=== PATIENT | female | born 1955 | race African-American/Black ===

== ENCOUNTER 2016-08-24 01:39 | Emergency (ER) | payer OTHER ==
[~2016-08-24] VITALS: Ht 167.6 cm; Wt 83.5 kg
[~2016-08-24 01:39] MED LIST: HYDR-2666 PO; INSU100I13 SQ; INSU200I SQ; LISI10TA2 PO; METF10002 PO
[2016-08-24 02:20] LABS: BILIRUBIN,URINE NEGATIVE (NEG); GLUCOSE,URINE >=1000 mg/dL (NEG); NITRITE,URINE NEGATIVE (NEG); PH,URINE 5.5; PROTEIN,URINE NEGATIVE (NEG-TRACE); UROBILINOGEN,URINE 0.2 mg/dL (0.2 mg/dL)
[2016-08-24 02:28] LABS: BACTERIA,URINE FEW /HPF (0-FEW); SQUAMOUS EPITHELIAL CELL,UR MANY /LPF; YEAST,URINE PRESENT /HPF
[2016-08-24] MEDS ORDERED: FLUC150T PO (02:46)
[2016-08-24] MEDS ORDERED: CIPR250T PO (02:46)
--- NOTE | 2016-08-24 02:46 | PHYS DOC ---
Past Medical History Past Medical History: Asthma, Diabetes-Type II, High Cholesterol, Hypertension Additional Past Medical Histor: glaucoma Past Surgical History: Other Additional Past Surgical Histo: cataracts and hip implant Alcohol Use: None Drug Use: None Adult General Chief Complaint Chief Complaint: VAGINAL BLEEDING HPI HPI Patient is a 60 year old female who presents with concern of vaginal irritation and vaginal redness for the past few days, blood with wiping after urination today, burning with urination today, one week of rhinorrhea/dry cough/ chills, and seeking ophthalmology referral for chronic glaucoma. She denies headache, vision changes, eye pain, nausea or vomiting, measured fever, abdominal pain, diarrhea, constipation. Review of Systems Review of Systems Constitutional: Denies fever or chills [] Eyes: Denies change in visual acuity, redness, or eye pain [] HENT: Denies nasal congestion or sore throat [] Respiratory: Denies cough or shortness of breath [] Cardiovascular: No additional information not addressed in HPI [] GI: Denies abdominal pain, nausea, vomiting, bloody stools or diarrhea [] : Has dysuria and hematuria [] Musculoskeletal: Denies back pain or joint pain [] Integument: Denies rash or skin lesions [] Neurologic: Denies headache, focal weakness or sensory changes [] Endocrine: Denies polyuria or polydipsia [] Allergies Allergies Allergies Coded Allergies Type Severity Reaction Last Updated Verified No Known Drug Allergies 03/27/16 No Physical Exam Physical Exam Constitutional: Well developed, well nourished, no acute distress, non-toxic appearance. [] HENT: Normocephalic, atraumatic, bilateral external ears normal, oropharynx moist, no oral exudates, nose normal. [] Eyes: PERRLA, EOMI. [] Neck: Normal range of motion, supple. [] Cardiovascular:Heart rate regular rhythm [] Lungs & Thorax: Bilateral breath sounds clear to auscultation [] Abdomen: Bowel sounds normal, soft, no tenderness. [] Genitourinary: Mild erythema of the vulva with no swelling or discharge, no vaginal discharge noted from external vaginal exam Skin: Warm, dry, no erythema, no rash. [] Back: No tenderness, no CVA tenderness. [] Extremities: ROM intact, no edema. [] Neurologic: Alert and oriented X 3, normal motor function, normal sensory function, no focal deficits noted. [] Psychologic: Affect normal, judgement normal, mood normal. [] Current Patient Data Vital Signs Vital Signs Date Time Temp Pulse Resp B/P Pulse Ox O2 Delivery O2 Flow Rate FiO2 08/24/16 02:57 71 16 135/76 94 Room Air 08/24/16 02:18 97.9 97.9 Lab Values Laboratory Tests Test 08/24/16 02:10 08/24/16 02:13 Glucose (Fingerstick) 317mg/dL (70-99) H Urine Collection Type Unknown Urine Color Yellow Urine Clarity Clear Urine pH 5.5 Urine Specific [place] >=1.030 Urine Protein Negativemg/dL (NEG-TRACE) Urine Glucose (UA) >=1000mg/dL (NEG) Urine Ketones (Stick) Negativemg/dL (NEG) Urine Blood Moderate (NEG) Urine Nitrite Negative (NEG) Urine Bilirubin Negative (NEG) Urine Urobilinogen Dipstick 0.2mg/dL (0.2 mg/dL) Urine Leukocyte Esterase Negative (NEG) Urine RBC 11-20/HPF (0-2) Urine WBC 5-10/HPF (0-4) Urine Squamous Epithelial Cells Many/LPF Urine Bacteria Few/HPF (0-FEW) Urine Mucus Slight/LPF Urine Yeast Present/HPF Course & Med Decision Making Course & Med Decision Making Pertinent Labs and Imaging studies reviewed. (See chart for details) Has hyperglycemia, but did not take home diabetes medications today. Urine with signs of UTI as well as yeast infection. History and symptoms concerning for UTI and yeast infection. Will give antibiotics and antifungal. Will give referral for gynecology and ophthalmology per request. Return precautions given. She understands and agrees with plan. Dragon Disclaimer Dragon Disclaimer This electronic medical record was generated, in whole or in part, using a voice recognition dictation system. Departure Departure Impression: Primary Impression: Diabetes type 2, uncontrolled Additional Impressions: Upper respiratory infection, viral Vulvovaginitis due to Thuy Acute cystitis with hematuria Glaucoma Disposition: 01 HOME, SELF-CARE Condition: STABLE Referrals: PELON AGUILERA MD, GURINDER MD Patient Instructions: Candidal Vulvovaginitis, [id number] Additional Instructions: Take Diflucan for yeast infection. Take second dose of Diflucan in 3 days if her symptoms do not improve. Take Cipro for urinary tract infection. Follow-up with your primary care doctor, gynecology clinic, and ophthalmology clinic. Please call for appointments. Return for any concerns. Scripts Ciprofloxacin Hcl 250 Mg Tablet1 Tab PO BID #6 TAB Prov:Vahe BLANCAS MD 08/24/16 Fluconazole (Diflucan)150 Mg Tablet1 Tab PO ONCE #1 TAB Ref 1 Prov:Vahe BLANCAS MD 08/24/16 Problem Qualifiers Primary Impression: Diabetes type 2, uncontrolled Diabetes mellitus complication status: without complication Diabetes mellitus extermination inspector insulin use: without fpc use Qualified Code: E11.65 - Type 2 diabetes mellitus with hyperglycemia Additional Impressions: Glaucoma Glaucoma type: unspecified type Laterality: bilateral Qualified Code: H40.9 - Unspecified glaucoma Vahe BLANCAS MD Aug 24, 2016 02:46
[2016-08-24 02:57] VITALS: BP 135/76
== END 2016-08-24 02:58 | disposition home or self-care (01) ==
LOC: ER 01:39
DX: N30.01 Acute cystitis with hematuria (principal); B37.3 Candidiasis of vulva and vagina; J06.9 Acute upper respiratory infection, unspecified; E11.39 Type 2 diabetes mellitus with other diabetic ophthalmic complication; H40.9 Unspecified glaucoma; J45.909 Unspecified asthma, uncomplicated; E78.00 Pure hypercholesterolemia, unspecified; I10 Essential (primary) hypertension
CPT/HCPCS: 81001; 82947; 87086; 99284

== ENCOUNTER 2017-12-27 11:05 | Emergency (ER) | payer OTHER ==
[2017-12-27 11:55] LABS: ADD MAN DIFF? NO
[2017-12-27 11:58] LABS: BASO # 0.1 x10^3/uL (0.0-0.2); BASO % 1 % (0-3); EOS # 0.1 x10^3/uL (0.0-0.7); EOS % 1 % (0-3); HEMATOCRIT 43.2 % (36.0-47.0); HEMOGLOBIN 15.2 g/dL (12.0-15.5); LYMPH # 3.3 x10^3/uL (1.0-4.8); LYMPH % 46 % (24-48); MEAN CORPUSCULAR HEMOGLOBIN 34 pg (25-35); MEAN CORPUSCULAR HGB CONC 35 g/dL (31-37); MEAN CORPUSCULAR VOLUME 97 fL (79-100); MONO # 0.4 x10^3/uL (0.0-1.1); MONO % 6 % (0-9); NEUT # 3.3 x10^3uL (1.8-7.7); NEUT % 46 % (31-73); PLATELET COUNT 295 x10^3/uL (140-400); RED BLOOD COUNT 4.44 x10^6/uL (3.50-5.40); RED CELL DISTRIBUTION WIDTH 13.4 % (11.5-14.5); WHITE BLOOD COUNT 7.2 x10^3/uL (4.0-11.0)
[2017-12-27 11:59] LABS: BILIRUBIN,URINE NEGATIVE (NEG); CLARITY,URINE CLEAR; COLOR,URINE YELLOW; GLUCOSE,URINE >=1000 mg/dL (NEG); NITRITE,URINE NEGATIVE (NEG); PH,URINE 5.5; PROTEIN,URINE NEGATIVE (NEG-TRACE); UROBILINOGEN,URINE 0.2 mg/dL (0.2 mg/dL)
[2017-12-27 12:07] LABS: BARBITURATES NEG (NEG); BENZODIAZEPINES NEG (NEG); CANNABINOIDS NEG (NEG); COCAINE NEG (NEG); METHADONE NEG (NEG); OPIATES NEG (NEG); PHENCYCLIDINE NEG (NEG)
[2017-12-27 12:08] LABS: AMPHETAMINE/METHAMPHETAMINE NEG (NEG); ETHANOL, URINE NEG (NEG)
[2017-12-27 12:11] LABS: ANION GAP 5 (6-14); BLOOD UREA NITROGEN 8 mg/dL (7-20); BUN/CREATININE RATIO 8 (6-20); CALCIUM 9.3 mg/dL (8.5-10.1); CARBON DIOXIDE 29 mmol/L (21-32); CHLORIDE 102 mmol/L (98-107); GLUCOSE 326 mg/dL (70-99); POTASSIUM 5.2 mmol/L (3.5-5.1); SODIUM 136 mmol/L (136-145)
[2017-12-27 12:15] LABS: BACTERIA,URINE 0 /HPF (0-FEW); RBC,URINE 0 /HPF (0-2); SQUAMOUS EPITHELIAL CELL,UR MOD /LPF; WBC,URINE 0 /HPF (0-4)
[2017-12-27 12:17] LABS: ALBUMIN 3.5 g/dL (3.4-5.0); ALBUMIN/GLOBULIN RATIO 0.9 (1.0-1.7); ALK PHOS 103 U/L (46-116); ALT (SGPT) 21 U/L (14-59); AST (SGOT) 16 U/L (15-37); TOTAL BILIRUBIN 0.4 mg/dL (0.2-1.0); TOTAL PROTEIN 7.3 g/dL (6.4-8.2)
[2017-12-27 12:22] LABS: TROPONINI < 0.017 ng/mL (0.000-0.055)
[2017-12-27 12:24] LABS: CKMB INDEX 0.4 % (0-4); CKMB MASS 0.6 ng/mL (0.0-3.6); CREATINE KINASE 138 U/L (26-192)
[2017-12-27 12:24] LABS: NT-PRO BNP 39 pg/mL (0-124); THYROID STIM HORMONE (TSH) 0.727 uIU/mL (0.358-3.74)
== END 2017-12-27 13:45 | disposition home or self-care (01) ==
LOC: ER 13:45
DX: M54.12 Radiculopathy, cervical region (principal); M79.605 Pain in left leg; E11.65 Type 2 diabetes mellitus with hyperglycemia; E78.00 Pure hypercholesterolemia, unspecified; I10 Essential (primary) hypertension; J45.909 Unspecified asthma, uncomplicated; Z86.73 Personal history of transient ischemic attack (TIA), and cerebral infarction without residual deficits
CPT/HCPCS: 36415; 70450; 71045; 72040; 73030; 80053; 80307; 81001; 82553; 83735; 83880; 84443; 84484; 85025; 93005; 99285-25

== ENCOUNTER 2018-05-24 11:47 | Emergency (ER) | payer OTHER ==
[~2018-05-24] VITALS: Ht 165.1 cm; Wt 81.2 kg
[~2018-05-24 11:47] MED LIST changes: +CIPR250T PO; +CYCL10TA2 PO; +FLUC150T PO; -HYDR-2666 PO; +HYDR-2758 PO; -METF10002 PO; +METF10007 PO
[2018-05-24] MEDS ORDERED: IV NORMAL SALINE 1000ML BAG 1,000 ML IV SCH (12:11)
[2018-05-24] MEDS ORDERED: ASPIRIN CHEWABLE 81 MG TABLET. PO ONE (12:15)
--- NOTE | 2018-05-24 12:30 | PHYS DOC ---
Past Medical History Past Medical History: Asthma, Diabetes-Type II, High Cholesterol, Hypertension , TIA Additional Past Medical Histor: glaucoma Past Surgical History: Other Additional Past Surgical Histo: cataracts and hip implant Alcohol Use: None Drug Use: None Adult General Chief Complaint Chief Complaint: CHEST PAIN [facility] HPI Patient is a 62-year-old female who presents with complaint of midsternal chest pain that radiates into her left chest and down both arms that is been present for the past 3 days. She states the symptoms are intermittent in nature and it times it feels like the pain is shooting across her left chest into her left shoulder. She states that initially the pain was shooting just down her left arm to her fingers but since yesterday it started shooting down her right arm as well. Patient does indicate that she has a history of a blood clot. She states that she is concerned that this could be a blood clot. She states that she went and saw her primary care doctor this week and he stated he wanted to schedule her for a stress test. She is concerned because she doesn't feel like he is taking seriously enough. Patient states that there seemed to be no exacerbating or alleviating factors. She states that at its worst the pain is been a 7 out of 10 but is currently a 3 out of 10. Review of Systems Review of Systems Constitutional: Denies fever or chills [] Eyes: Denies change in visual acuity, redness, or eye pain [] HENT: Denies nasal congestion or sore throat [] Respiratory: Denies cough or shortness of breath [] Cardiovascular: No additional information not addressed in HPI [] GI: Denies abdominal pain, nausea, vomiting, bloody stools or diarrhea [] : Denies dysuria or hematuria [] Musculoskeletal: Denies back pain or joint pain [] Integument: Denies rash or skin lesions [] Neurologic: Denies headache, focal weakness or sensory changes [] Endocrine: Denies polyuria or polydipsia [] All other systems were reviewed and found to be within normal limits, except as documented in this note. Current Medications Current Medications Current Medications Medications (Trade) Dose Ordered Sig/Angel Luis Start Time Stop Time Status Last Admin Dose Admin Aspirin (Children'S Aspirin) 324 mg 1X ONCE 05/24/18 12:15 05/24/18 12:16 DC 05/24/18 12:25 324 MG Info (CONTRAST GIVEN -- Rx MONITORING) 1 each PRN DAILY PRN 05/24/18 13:15 05/26/18 13:14 Iohexol (Omnipaque 300 Mg/ml) 75 ml 1X ONCE 05/24/18 13:15 05/24/18 13:16 DC 05/24/18 13:17 75 ML Sodium Chloride 1,000 ml @ 100 mls/hr Q10H 05/24/18 12:11 05/24/18 22:10 05/24/18 12:25 100 MLS/HR Allergies Allergies Allergies Coded Allergies Type Severity Reaction Last Updated Verified No Known Drug Allergies 03/27/16 No Physical Exam Physical Exam Constitutional: Well developed, well nourished, no acute distress, non-toxic appearance. [] HENT: Normocephalic, atraumatic, bilateral external ears normal, oropharynx moist, no oral exudates, nose normal. [] Eyes: PERRLA, EOMI, conjunctiva normal, no discharge. [] Neck: Normal range of motion, no tenderness, supple, no stridor. [] Cardiovascular:Heart rate regular rhythm, no murmur [] Lungs & Thorax: Bilateral breath sounds clear to auscultation [] Abdomen: Bowel sounds normal, soft, no tenderness, no masses, no pulsatile masses. [] Skin: Warm, dry, no erythema, no rash. [] Back: No tenderness, no CVA tenderness. [] Extremities: No tenderness, no cyanosis, no clubbing, ROM intact, no edema. [] Neurologic: Alert and oriented X 3, normal motor function, normal sensory function, no focal deficits noted. [] Psychologic: Affect normal, judgement normal, mood normal. [] Current Patient Data Vital Signs Vital Signs Date Time Temp Pulse Resp B/P (MAP) Pulse Ox O2 Delivery O2 Flow Rate FiO2 05/24/18 11:55 98.5 76 16 156/80 (105) 98 Room Air 98.5 Lab Values Laboratory Tests Test 05/24/18 12:05 White Blood Count 7.2 x10^3/uL (4.0-11.0) Red Blood Count 4.02 x10^6/uL (3.50-5.40) Hemoglobin 13.4 g/dL (12.0-15.5) Hematocrit 38.9 % (36.0-47.0) Mean Corpuscular Volume 97 fL (79-100) Mean Corpuscular Hemoglobin 33 pg (25-35) Mean Corpuscular Hemoglobin Concent 35 g/dL (31-37) Red Cell Distribution Width 13.8 % (11.5-14.5) Platelet Count 293 x10^3/uL (140-400) Neutrophils (%) (Auto) 43 % (31-73) Lymphocytes (%) (Auto) 50 % (24-48) H Monocytes (%) (Auto) 5 % (0-9) Eosinophils (%) (Auto) 1 % (0-3) Basophils (%) (Auto) 1 % (0-3) Neutrophils # (Auto) 3.1 x10^3uL (1.8-7.7) Lymphocytes # (Auto) 3.6 x10^3/uL (1.0-4.8) Monocytes # (Auto) 0.4 x10^3/uL (0.0-1.1) Eosinophils # (Auto) 0.1 x10^3/uL (0.0-0.7) Basophils # (Auto) 0.0 x10^3/uL (0.0-0.2) Prothrombin Time 13.1 SEC (11.7-14.0) Prothrombin Time INR 1.0 (0.8-1.1) D-Dimer (Iris) 0.53 ug/mlFEU (0.00-0.50) H Sodium Level 142 mmol/L (136-145) Potassium Level 4.1 mmol/L (3.5-5.1) Chloride Level 104 mmol/L (98-107) Carbon Dioxide Level 28 mmol/L (21-32) Anion Gap 10 (6-14) Blood Urea Nitrogen 8 mg/dL (7-20) Creatinine 0.9 mg/dL (0.6-1.0) Estimated GFR (Cockcroft-Gault) 76.8 BUN/Creatinine Ratio 9 (6-20) Glucose Level 299 mg/dL (70-99) H Calcium Level 8.9 mg/dL (8.5-10.1) Magnesium Level 1.7 mg/dL (1.8-2.4) L Total Bilirubin 0.2 mg/dL (0.2-1.0) Aspartate Amino Transferase (AST) 16 U/L (15-37) Alanine Aminotransferase (ALT) 21 U/L (14-59) Alkaline Phosphatase 87 U/L (46-116) Troponin I Quantitative < 0.017 ng/mL (0.000-0.055) LE-Yxa-Z-Type Natriuretic Peptide 89 pg/mL (0-124) Total Protein 6.9 g/dL (6.4-8.2) Albumin 3.3 g/dL (3.4-5.0) L Albumin/Globulin Ratio 0.9 (1.0-1.7) L Lipase 1173 U/L (73-393) H Thyroid Stimulating Hormone (TSH) 0.775 uIU/mL (0.358-3.74) Laboratory Tests 05/24/18 12:05 Laboratory Tests 05/24/18 12:05 EKG EKG [] Interpretation Time: EKG demonstrates normal sinus rhythm with rate of 69. Radiology/Procedures Radiology/Procedures [] Impressions: CT abdomen and pelvis demonstrates no acute abnormalities include no pancreatitis. Venous duplex ultrasound of the left upper extremity demonstrates no DVT. Chest x-ray demonstrates no acute process. Course & Med Decision Making Course & Med Decision Making Pertinent Labs and Imaging studies reviewed. (See chart for details) [] Dragon Disclaimer Dragon Disclaimer This electronic medical record was generated, in whole or in part, using a voice recognition dictation system. Departure Departure Impression: Primary Impression: Acute pancreatitis Disposition: 01 HOME, SELF-CARE Condition: STABLE Referrals: NO PCP (PCP) Patient Instructions: Acute Pancreatitis Additional Instructions: Take prescribed medications as directed. I would recommend clear liquid diet initially and advance to bland diet for at least the next 48 hours. Follow-up with your primary care provider in the next few days for repeat blood work to include lipase. Scripts Ondansetron Hcl (ZOFRAN) 4 Mg Tablet 4 MG PO PRN TID PRN for NAUSEA/VOMITING, #15 nausea/vomiting Prov: JUAN CRUMP Jr. DO 05/24/18 Hydrocodone/Apap 5-325 (NORCO 5-325 TABLET) 1 Each Tablet 1 EACH PO PRN Q6HRS PRN for PAIN, #15 as needed for pain Prov: JUAN CRUMP Jr. DO 05/24/18 Problem Qualifiers Primary Impression: Acute pancreatitis Pancreatitis type: unspecified pancreatitis type Acute pancreatitis complication: no infection or necrosis Qualified Codes: K85.90 - Acute pancreatitis without necrosis or infection, unspecified JUAN CRUMP Jr. DO May 24, 2018 12:30
[2018-05-24 12:32] LABS: PROTHROMBIN TIME PATIENT 13.1 SEC (11.7-14.0)
--- NOTE | 2018-05-24 12:32 | RAD ---
EXAM: CHEST 1 VIEW History: Chest pain COMPARISON: 12/27/2017 TECHNIQUE: Single portable radiograph of the chest FINDINGS: The cardiac silhouette is unremarkable. The lungs are clear bilaterally. The costophrenic sulci are clear and well demarcated. IMPRESSION: No radiographic evidence of an acute cardiopulmonary process. Electronically signed by: Gautam Wilkins MD (05/24/2018 12:28 PM) [place] [id number]
[2018-05-24 12:35] LABS: BASO % 1 % (0-3); EOS # 0.1 x10^3/uL (0.0-0.7); EOS % 1 % (0-3); HEMATOCRIT 38.9 % (36.0-47.0); HEMOGLOBIN 13.4 g/dL (12.0-15.5); LYMPH # 3.6 x10^3/uL (1.0-4.8); LYMPH % 50 % (24-48); MEAN CORPUSCULAR HEMOGLOBIN 33 pg (25-35); MEAN CORPUSCULAR HGB CONC 35 g/dL (31-37); MEAN CORPUSCULAR VOLUME 97 fL (79-100); MONO # 0.4 x10^3/uL (0.0-1.1); MONO % 5 % (0-9); NEUT # 3.1 x10^3uL (1.8-7.7); NEUT % 43 % (31-73); PLATELET COUNT 293 x10^3/uL (140-400); RED BLOOD COUNT 4.02 x10^6/uL (3.50-5.40); RED CELL DISTRIBUTION WIDTH 13.8 % (11.5-14.5); WHITE BLOOD COUNT 7.2 x10^3/uL (4.0-11.0)
[2018-05-24 12:38] LABS: D-DIMER 0.53 ug/mlFEU (0.00-0.50)
[2018-05-24 12:41] LABS: CALCIUM 8.9 mg/dL (8.5-10.1); CREATININE 0.9 mg/dL (0.6-1.0); GFR 76.8; POTASSIUM 4.1 mmol/L (3.5-5.1)
--- NOTE | 2018-05-24 12:41 | EKG ---
[facility] [address] [place] [address] Test Date: 2018-05-24 Test Time: 11:55:45 Pat Name: LEISA PEMBERTON Department: Room: Gender: F Csr Technician: : 1955 Requested By: JUAN CRUMP Order Number: [id number] Reading MD: Forest Rosas MD Measurements Intervals [place] Rate: 69 P: 51 GA: 172 QRS: -44 QRSD: 76 T: 34 QT: 374 QTc: 402 Interpretive Statements SINUS RHYTHM CANNOT RULE OUT PRIOR SEPTAL INFARCT Electronically Signed On 05-28-2018 11:13:07 SENIOR INFORMATION SECURITY CONSULTANT by Forest Rosas MD
[2018-05-24 12:46] LABS: ALBUMIN 3.3 g/dL (3.4-5.0); ALBUMIN/GLOBULIN RATIO 0.9 (1.0-1.7); MAGNESIUM 1.7 mg/dL (1.8-2.4); TOTAL BILIRUBIN 0.2 mg/dL (0.2-1.0); TOTAL PROTEIN 6.9 g/dL (6.4-8.2)
[2018-05-24] MEDS ORDERED: CONTRAST GIVEN. MC PRN (13:15)
[2018-05-24] MEDS ORDERED: IOHEXOL 300 MG/ML 100ML VIAL. IV ONE (13:15)
--- NOTE | 2018-05-24 13:35 | RAD ---
CT ABD PELV W/ IV CONTRST ONLY dated 05/24/2018 1:12 PM Indication: Abdominal pain.EKEVATED LIPASE PANCREATITIS NO PREV. Comparison: No comparison is available. Technique: Contiguous axial imaging of the abdomen and pelvis performed after the intravenous administration of 75 cc Omnipaque 300. One or more of the following individualized dose reduction techniques were utilized for this examination: 1. Automated exposure control 2. Adjustment of the mA and/or kV according to patient size 3. Use of iterative reconstruction technique Findings: Limited images of lung bases show patchy and linear opacity in the lower lobes. There is mild emphysema. Coronary artery calcifications. No pleural or pericardial effusion. Liver, spleen, pancreas unremarkable. No significant inflammatory changes surrounding the pancreas. Adrenal glands, gallbladder unremarkable. 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 Kidneys are otherwise symmetric and enhancement. No hydronephrosis or mass. There is a well-defined low-density foci at the upper pole right kidney, likely small cysts. Unopacified GI tract normal in caliber and contour. No focal bowel wall thickening. Scattered diverticula throughout the colon. No paracolonic inflammatory changes. No ascites or lymphadenopathy. Appendix normal in caliber. Abdominal aorta normal in caliber. Small umbilical hernia containing only fat. Images of pelvis show nondistended urinary bladder. Uterus and adnexa are unremarkable. No free pelvic fluid or pelvic lymphadenopathy. Bone windows show no acute findings. Evidence of prior total right hip arthroplasty. Mild multilevel spondylosis. There is atrophy and volume loss of the right psoas muscle, nonspecific. IMPRESSION: 1. No acute abnormality of abdomen or pelvis. No CT evidence of acute pancreatitis. 2. Diverticulosis with no evidence of acute diverticulitis. 3. Normal appendix. Electronically signed by: Nghia Nguyen MD (05/24/2018 1:32 PM) [id number]
--- NOTE | 2018-05-24 14:09 | RAD ---
Examination: Ultrasound left upper extremity venous Doppler HISTORY: History of DVT COMPARISON: None available TECHNIQUE: Grayscale, color Doppler 2-D, spectral waveform analysis of the left upper extremity venous system were performed. FINDINGS: The visualized internal jugular vein, subclavian vein, axillary cephalic, basilic, brachial, radial, ulnar veins are patent. In the region of the left anterior shoulder, at the site of lump there is a 3.8 cm isoechoic mass probably a lipoma. IMPRESSION: 1. No evidence of deep venous thrombosis left upper extremity. 2. 3.8 cm probable lipoma identified in the left anterior shoulder region. Electronically signed by: Gautam Wilkins MD (05/24/2018 2:05 PM) [place] [id number]
[2018-05-24 14:55] VITALS: BP 170/74
[2018-05-24] MEDS ORDERED: HYDR-971 PO (15:01)
[2018-05-24] MEDS ORDERED: ONDA4TAB7 PO (15:01)
== END 2018-05-24 15:14 | disposition home or self-care (01) ==
LOC: ER 11:47
DX: K85.90 Acute pancreatitis without necrosis or infection, unspecified (principal); R07.89 Other chest pain; J45.909 Unspecified asthma, uncomplicated; E78.00 Pure hypercholesterolemia, unspecified; I10 Essential (primary) hypertension; E11.39 Type 2 diabetes mellitus with other diabetic ophthalmic complication; E11.36 Type 2 diabetes mellitus with diabetic cataract; H42 Glaucoma in diseases classified elsewhere; Z86.73 Personal history of transient ischemic attack (TIA), and cerebral infarction without residual deficits
CPT/HCPCS: 36415; 71045; 74177; 80053; 83690; 83735; 83880; 84443; 84484; 85025; 85379; 85610; 93005; 93971; 99285; J7030; Q9967

== ENCOUNTER → 2019-03-06 | Outpatient (CLI) | payer MEDICAID ==
[~2019-03-06] MED LIST changes: -HYDR-2758 PO; +HYDR-2761 PO; +HYDR-3164 PO; +ONDA4TAB7 PO
--- NOTE | 2019-03-06 16:10 | KCIC ---
Bilateral digital screening mammograms with 3-D tomosynthesis: Reason for examination: Routine screening. No previous examinations for comparison. New baseline. Bilateral mammograms in CC and oblique projections were obtained with 2-D imaging and 3-D tomosynthesis imaging on a Siemens Inspiration unit and reviewed on the workstation. Interpretation was made with the benefit of CAD. The skin and nipples show no abnormalities. No abnormal axillary lymph nodes are seen. The breast parenchyma shows scattered fatty and fibroglandular density. (Breast density: Category B.) There appear to be nodular densities in the subareolar 3:00 and anterior 6:00 positions of the left breast and in the subareolar 10:00 position of the right breast. Further evaluation with ultrasound is recommended. There are no other dominant masses, suspicious calcifications or architectural distortion. Impression: Small nodular densities seen bilaterally in the anterior breasts. Recommend further evaluation with ultrasound. BI-RADS Category 0: Incomplete. Needs additional imaging evaluation. "Our facility is accredited by the [place] [employer] Mammography Program." This patient's information has been entered into a reminder system for the patient to be notified with the results of her examination and a target date for the next mammogram. Electronically signed by: Paz Carmichael MD (03/06/2019 4:07 PM) [id number]
== END | disposition home or self-care (01) ==
LOC: KCIC MAMMO 09:21
PROVIDERS: ATTEND Family Medicine
DX: Z12.31 Encounter for screening mammogram for malignant neoplasm of breast (principal)
CPT/HCPCS: 77063; 77067

== ENCOUNTER 2019-03-28 10:46 | Inpatient (IN) | payer MEDICAID ==
[~2019-03-28] VITALS: Ht 165.1 cm; Wt 78.5 kg
[2019-03-28] MEDS ORDERED: ASPIRIN CHEWABLE 81 MG TABLET. PO ONE (11:30)
--- NOTE | 2019-03-28 11:35 | PHYS DOC ---
Past Medical History Past Medical History: Asthma, Diabetes-Type II, High Cholesterol, Hypertension, TIA Additional Past Medical Histor: glaucoma Past Surgical History: Other Additional Past Surgical Histo: cataracts and hip implant Smoking: Cigarettes Alcohol Use: None Drug Use: None Adult General Chief Complaint Chief Complaint: MULTIPLE COMPLAINTS [facility] HPI Patient is a 63-year-old female, with numerous cardiac risk factors,, who presents to the emergency department for evaluation of multiple complaints. She states that on Monday through Monday, she had dark, black diarrhea, and for the past 2-3 days, has had some intermittent left-sided chest discomfort, described as a sharp pain in her heart area, worse with exertion. She has not had any nausea or vomiting, or any grossly bloody stools. She states that today her stool return to normal color and consistency. She has not had any significant abdominal pain at this time, but does have a history of pancreatitis in the past. There are no alleviating or exacerbating factors to her symptoms otherwise. Review of Systems Review of Systems Constitutional: Denies fever or chills [] Eyes: Denies change in visual acuity, redness, or eye pain [] HENT: Denies nasal congestion or sore throat [] Respiratory: Denies cough or shortness of breath [] Cardiovascular: No additional information not addressed in HPI [] GI: Denies abdominal pain, nausea, vomiting, grossly bloody stools [] : Denies dysuria or hematuria [] Musculoskeletal: Denies back pain or joint pain [] Integument: Denies rash or skin lesions [] Neurologic: Denies headache, focal weakness or sensory changes [] Endocrine: Denies polyuria or polydipsia [] All other systems were reviewed and found to be within normal limits, except as documented in this note. Current Medications Current Medications Current Medications Medications (Trade) Dose Ordered Sig/Angel Luis Start Time Stop Time Status Last Admin Dose Admin Aspirin (Children'S Aspirin) 162 mg 1X ONCE 03/28/19 11:30 03/28/19 11:32 DC 03/28/19 11:52 162 MG Multi-Ingredient Mouthwash/Gargle (Gi Cocktail) 20 ml 1X ONCE 03/28/19 12:00 03/28/19 12:01 DC 03/28/19 11:52 20 ML Allergies Allergies Allergies Coded Allergies Type Severity Reaction Last Updated Verified No Known Drug Allergies 03/27/16 No Physical Exam Physical Exam PHYSICAL EXAM: CONSTITUTIONAL: Well developed, well nourished HEAD: normocephalic, atraumatic EENT: PERRL, EOMI. Conjunctivae normal color, sclerae non-icteric; moist mucous membranes. NECK: Supple, non-tender; no meningismus. LUNGS: Lungs CTA, breathing even and unlabored. Normal air movement. HEART: Regular rate and rhythm, no murmur CHEST: No deformity; non-tender ABDOMEN: The abdomen is soft, there is mild diffuse epigastric and left upper quadrant abdominal tenderness to palpation, without rebound or guarding, the remainder the abdomen is soft and non-tender, no masses or bruits. EXTREM: Normal ROM; no deformity, no calf tenderness. Normal pulses palpable in all extremities. There is no pedal edema. SKIN: No rash; no diaphoresis NEURO: Alert; normal speech and cognition; CN's grossly intact; strength grossly intact without focal deficit. BACK: No CVA TTP. Current Patient Data Vital Signs Vital Signs Date Time Temp Pulse Resp B/P (MAP) Pulse Ox O2 Delivery O2 Flow Rate FiO2 03/28/19 12:26 69 16 112/64 (80) 99 Room Air 03/28/19 10:56 98.4 98.4 Lab Values Laboratory Tests Test 03/28/19 11:21 03/28/19 11:51 Stool Occult Blood Negative (NEG) White Blood Count 6.8 x10^3/uL (4.0-11.0) Red Blood Count 4.23 x10^6/uL (3.50-5.40) Hemoglobin 14.0 g/dL (12.0-15.5) Hematocrit 41.2 % (36.0-47.0) Mean Corpuscular Volume 98 fL (79-100) Mean Corpuscular Hemoglobin 33 pg (25-35) Mean Corpuscular Hemoglobin Concent 34 g/dL (31-37) Red Cell Distribution Width 13.5 % (11.5-14.5) Platelet Count 290 x10^3/uL (140-400) Neutrophils (%) (Auto) 45 % (31-73) Lymphocytes (%) (Auto) 47 % (24-48) Monocytes (%) (Auto) 6 % (0-9) Eosinophils (%) (Auto) 1 % (0-3) Basophils (%) (Auto) 1 % (0-3) Neutrophils # (Auto) 3.1 x10^3/uL (1.8-7.7) Lymphocytes # (Auto) 3.2 x10^3/uL (1.0-4.8) Monocytes # (Auto) 0.4 x10^3/uL (0.0-1.1) Eosinophils # (Auto) 0.1 x10^3/uL (0.0-0.7) Basophils # (Auto) 0.0 x10^3/uL (0.0-0.2) Prothrombin Time 12.5 SEC (11.7-14.0) Prothrombin Time INR 1.0 (0.8-1.1) Sodium Level 141 mmol/L (136-145) Potassium Level 5.2 mmol/L (3.5-5.1) H Chloride Level 106 mmol/L (98-107) Carbon Dioxide Level 26 mmol/L (21-32) Anion Gap 9 (6-14) Blood Urea Nitrogen 12 mg/dL (7-20) Creatinine 0.9 mg/dL (0.6-1.0) Estimated GFR (Cockcroft-Gault) 76.5 BUN/Creatinine Ratio 13 (6-20) Glucose Level 135 mg/dL (70-99) H Calcium Level 9.9 mg/dL (8.5-10.1) Total Bilirubin 0.4 mg/dL (0.2-1.0) Aspartate Amino Transferase (AST) 23 U/L (15-37) Alanine Aminotransferase (ALT) 16 U/L (14-59) Alkaline Phosphatase 79 U/L (46-116) Troponin I Quantitative < 0.017 ng/mL (0.000-0.055) YT-Irl-K-Type Natriuretic Peptide 46 pg/mL (0-124) Total Protein 7.5 g/dL (6.4-8.2) Albumin 3.7 g/dL (3.4-5.0) Albumin/Globulin Ratio 1.0 (1.0-1.7) Lipase 1420 U/L (73-393) H Laboratory Tests 03/28/19 11:51 Laboratory Tests 03/28/19 11:51 EKG EKG Normal sinus rhythm at a rate of 69 beats for minute, left axis deviation, normal intervals. There are no acute ischemic ST/T changes.[] Radiology/Procedures Radiology/Procedures [PROCEDURE: PORTABLE CHEST 1V PORTABLE CHEST 1V History: Chest pain Comparison: May 24, 2018 Findings: No consolidation or pleural effusion. Normal heart size. Minimal right midlung linear atelectasis or scarring, unchanged. Impression: 1. No acute cardiopulmonary process.] Course & Med Decision Making Course & Med Decision Making Pertinent Labs and Imaging studies reviewed. (See chart for details) [] 12:30 PM:The patient's condition remains stable. I spoke with the hospitalist, who accepted the patient to the hospital for further evaluation and treatment. Dragon Disclaimer Dragon Disclaimer This electronic medical record was generated, in whole or in part, using a voice recognition dictation system. Departure Departure Impression: Primary Impression: Acute pancreatitis Additional Impression: Chest pain Disposition: ADMITTED INPATIENT Admitting Physician: REILLY Condition: STABLE Referrals: LEAH FLORES MD (PCP) Problem Qualifiers ROCIO MILLER MD Mar 28, 2019 11:35
[2019-03-28 11:46] LABS: FECAL OB PT NEGATIVE (NEG)
[2019-03-28] MEDS ORDERED: LIDO:MAALOX 1:1 20 ML SINGLE DOSE. SWSW ONE (12:00)
[2019-03-28 12:01] LABS: BASO % 1 % (0-3); EOS # 0.1 x10^3/uL (0.0-0.7); EOS % 1 % (0-3); HEMATOCRIT 41.2 % (36.0-47.0); LYMPH # 3.2 x10^3/uL (1.0-4.8); LYMPH % 47 % (24-48); MEAN CORPUSCULAR HEMOGLOBIN 33 pg (25-35); MEAN CORPUSCULAR HGB CONC 34 g/dL (31-37); MEAN CORPUSCULAR VOLUME 98 fL (79-100); MONO # 0.4 x10^3/uL (0.0-1.1); MONO % 6 % (0-9); NEUT # 3.1 x10^3/uL (1.8-7.7); NEUT % 45 % (31-73); PLATELET COUNT 290 x10^3/uL (140-400); RED BLOOD COUNT 4.23 x10^6/uL (3.50-5.40); RED CELL DISTRIBUTION WIDTH 13.5 % (11.5-14.5); WHITE BLOOD COUNT 6.8 x10^3/uL (4.0-11.0)
[2019-03-28 12:10] LABS: CALCIUM 9.9 mg/dL (8.5-10.1); CREATININE 0.9 mg/dL (0.6-1.0); GFR 76.5; PROTHROMBIN TIME PATIENT 12.5 SEC (11.7-14.0)
[2019-03-28 12:16] LABS: ALBUMIN 3.7 g/dL (3.4-5.0); TOTAL BILIRUBIN 0.4 mg/dL (0.2-1.0); TOTAL PROTEIN 7.5 g/dL (6.4-8.2)
--- NOTE | 2019-03-28 12:19 | RAD ---
PORTABLE CHEST 1V History: Chest pain Comparison: May 24, 2018 Findings: No consolidation or pleural effusion. Normal heart size. Minimal right midlung linear atelectasis or scarring, unchanged. Impression: 1. No acute cardiopulmonary process. Electronically signed by: Rusty Tesfaye DO (03/28/2019 12:16 PM) [facility] [email or web address]
[2019-03-28 12:21] LABS: POTASSIUM 5.2 mmol/L (3.5-5.1)
--- NOTE | 2019-03-28 12:31 | EKG ---
[facility] [address] [place] [address] Test Date: 2019-03-28 Test Time: 10:54:30 Pat Name: LEISA PEMBERTON Department: Room: Gender: F [employer]: : 1955 Requested By: ROCIO MILLER Order Number: [id number] Reading MD: Measurements Intervals [place] Rate: 69 P: 39 [place]: 156 QRS: -47 QRSD: 78 T: 37 QT: 366 QTc: 394 Interpretive Statements SINUS RHYTHM ABNORMAL LEFT AXIS DEVIATION LEFT ANTERIOR FASCICULAR BLOCK ABNORMAL ECG RI6.01 Unconfirmed report No previous ECG available for comparison
--- NOTE | 2019-03-28 12:41 | PDOC1 ---
History and Physical Date of Admission Date of Admission DATE: 03/28/19 TIME: 12:41 Identification/Chief Complaint Chief Complaint SEEN IN er , presents to the emergency department for evaluation of multiple complaints. She states that on Monday through Monday, she had dark, black diarrhea, and for the past 2-3 days, has had some intermittent left-sided chest discomfort, described as a sharp pain in her heart area, worse with exertion. She has not had any nausea or vomiting, or any grossly bloody stools. She states that today her stool return to normal color and consistency. She has not had any significant abdominal pain at this time, but has moderate epigastric discomfort, but does have a history of pancreatitis in the past. Past Medical History Past Medical History Past Medical History Past Medical History Past Medical History: Asthma, Diabetes-Type II, High Cholesterol, Hypertension, TIA Additional Past Medical Histor: glaucoma Past Surgical History: Other Additional Past Surgical Histo: cataracts and hip implant Smoking: Cigarettes Alcohol Use: None Drug Use: None fhx htn GI: GERD Family History Family History: High Cholestrol, Hypertension Social History Smoke: <1 pack per day ALCOHOL: none Drugs: None Current Problem List Problem List Problems Medical Problems: (1) Acute pancreatitis Status: Acute (2) Chest pain Status: Acute Current Medications Current Medications Current Medications Aspirin (Children'S Aspirin) 162 mg 1X ONCE PO Last administered on 03/28/19at 11:52; Start 03/28/19 at 11:30; Stop 03/28/19 at 11:32; Status DC Multi-Ingredient Mouthwash/Gargle (Gi Cocktail) 20 ml 1X ONCE SWSW Last administered on 03/28/19at 11:52; Start 03/28/19 at 12:00; Stop 03/28/19 at 12:01; Status DC Active Scripts Active Zofran (Ondansetron Hcl) 4 Mg Tablet 4 Mg PO PRN TID PRN nausea/vomiting [place] 5-325 Tablet (Acetaminophen/Hydrocodone Bitart) 1 Each Tablet 1 Each PO PRN Q6HRS PRN as needed for pain Cyclobenzaprine Hcl 10 Mg Tablet 1 Tab PO TID Ciprofloxacin Hcl 250 Mg Tablet 1 Tab PO BID Diflucan (Fluconazole) 150 Mg Tablet 1 Tab PO ONCE Hydrocodone-Apap 5-325 (Hydrocodone Bit/Acetaminophen) 1 Each Tablet 2 Tab PO PRN Q6HRS PRN Lisinopril 10 Mg Tablet 1 Tab PO DAILY 30 Days Metformin Hcl 1,000 Mg Tablet 1 Tab PO BID 30 Days Lantus Solostar (Insulin Glargine,Hum.rec.anlog) 100 Unit/1 Ml Insuln.pen 35 Unit SQ QHS 30 Days Humalog Kwikpen (Insulin Lispro) 200 Unit/1 Ml Insuln.pen 15 Unit SQ BID 30 Days Allergies Allergies: Coded Allergies: No Known Drug Allergies (Unverified , 03/27/16) ROS Review of System Review of Systems Review of Systems Constitutional: Denies fever or chills [] Eyes: Denies change in visual acuity, redness, or eye pain [] HENT: Denies nasal congestion or sore throat [] Respiratory: Denies cough or shortness of breath [] Cardiovascular: No additional information not addressed in HPI [] GI: Denies abdominal pain, nausea, vomiting, grossly bloody stools [] : Denies dysuria or hematuria [] Musculoskeletal: Denies back pain or joint pain [] Integument: Denies rash or skin lesions [] Neurologic: Denies headache, focal weakness or sensory changes [] Endocrine: Denies polyuria or polydipsia [] 14 pt systems were reviewed and found to be within normal limits, except as documented Cardiovascular: yes Chest Pain Gastrointestinal: Yes Nausea Skin: No Dry Skin, No Eczema, No Hair Changes, No Lumps, No Mole Changes, No Mottling, No Nail Changes, No Pruritus, No Rash, No Skin Lesion Changes, No Other, No Acne Physical Exam Physical Exam Physical Exam Physical Exam PHYSICAL EXAM: CONSTITUTIONAL: Well developed, well nourished HEAD: normocephalic, atraumatic EENT: PERRL, EOMI. Conjunctivae normal color, sclerae non-icteric; moist mucous membranes. NECK: Supple, non-tender; no meningismus. LUNGS: Lungs CTA, breathing even and unlabored. Normal air movement. HEART: Regular rate and rhythm, no murmur CHEST: No deformity; non-tender ABDOMEN: The abdomen is soft, there is mild diffuse epigastric and left upper quadrant abdominal tenderness to palpation, without rebound or guarding, the remainder the abdomen is soft and non-tender, no masses or bruits. EXTREM: Normal ROM; no deformity, no calf tenderness. Normal pulses palpable in all extremities. There is no pedal edema. SKIN: No rash; no diaphoresis NEURO: Alert; normal speech and cognition; CN's grossly intact; strength grossly intact without focal deficit. BACK: No CVA TTP. General: Oriented X3, Cooperative, mild distress HEENT: EOMI, Mucous membr. moist/pink Lungs: Clear to auscultation Heart: RRR, no thrills Breasts: Not examined Rectal Exam: not examined PELVIC: Examination not indicated Extremities: No cyanosis Skin: No rashes, No significant lesion Neuro: Normal speech, Strength at 5/5 X4 ext, Cranial nerves 3-12 NL Psych/Mental Status: Mental status NL, Mood NL Vitals Vitals Vital Signs Date Time Temp Pulse Resp B/P (MAP) Pulse Ox O2 Delivery O2 Flow Rate FiO2 03/28/19 12:26 69 16 112/64 (80) 99 Room Air 03/28/19 10:56 98.4 98.4 Labs Labs Laboratory Tests Test 03/28/19 11:21 03/28/19 11:51 Stool Occult Blood Negative (NEG) White Blood Count 6.8 x10^3/uL (4.0-11.0) Red Blood Count 4.23 x10^6/uL (3.50-5.40) Hemoglobin 14.0 g/dL (12.0-15.5) Hematocrit 41.2 % (36.0-47.0) Mean Corpuscular Volume 98 fL (79-100) Mean Corpuscular Hemoglobin 33 pg (25-35) Mean Corpuscular Hemoglobin Concent 34 g/dL (31-37) Red Cell Distribution Width 13.5 % (11.5-14.5) Platelet Count 290 x10^3/uL (140-400) Neutrophils (%) (Auto) 45 % (31-73) Lymphocytes (%) (Auto) 47 % (24-48) Monocytes (%) (Auto) 6 % (0-9) Eosinophils (%) (Auto) 1 % (0-3) Basophils (%) (Auto) 1 % (0-3) Neutrophils # (Auto) 3.1 x10^3/uL (1.8-7.7) Lymphocytes # (Auto) 3.2 x10^3/uL (1.0-4.8) Monocytes # (Auto) 0.4 x10^3/uL (0.0-1.1) Eosinophils # (Auto) 0.1 x10^3/uL (0.0-0.7) Basophils # (Auto) 0.0 x10^3/uL (0.0-0.2) Prothrombin Time 12.5 SEC (11.7-14.0) Prothromb Time International Ratio 1.0 (0.8-1.1) Sodium Level 141 mmol/L (136-145) Potassium Level 5.2 mmol/L (3.5-5.1) Chloride Level 106 mmol/L (98-107) Carbon Dioxide Level 26 mmol/L (21-32) Anion Gap 9 (6-14) Blood Urea Nitrogen 12 mg/dL (7-20) Creatinine 0.9 mg/dL (0.6-1.0) Estimated GFR (Cockcroft-Gault) 76.5 BUN/Creatinine Ratio 13 (6-20) Glucose Level 135 mg/dL (70-99) Calcium Level 9.9 mg/dL (8.5-10.1) Total Bilirubin 0.4 mg/dL (0.2-1.0) Aspartate Amino Transf (AST/SGOT) 23 U/L (15-37) Alanine Aminotransferase (ALT/SGPT) 16 U/L (14-59) Alkaline Phosphatase 79 U/L (46-116) Troponin I Quantitative < 0.017 ng/mL (0.000-0.055) EI-Rnf-F-Type Natriuretic Peptide 46 pg/mL (0-124) Total Protein 7.5 g/dL (6.4-8.2) Albumin 3.7 g/dL (3.4-5.0) Albumin/Globulin Ratio 1.0 (1.0-1.7) Lipase 1420 U/L (73-393) Laboratory Tests Test 03/28/19 11:21 03/28/19 11:51 Stool Occult Blood Negative (NEG) White Blood Count 6.8 x10^3/uL (4.0-11.0) Red Blood Count 4.23 x10^6/uL (3.50-5.40) Hemoglobin 14.0 g/dL (12.0-15.5) Hematocrit 41.2 % (36.0-47.0) Mean Corpuscular Volume 98 fL (79-100) Mean Corpuscular Hemoglobin 33 pg (25-35) Mean Corpuscular Hemoglobin Concent 34 g/dL (31-37) Red Cell Distribution Width 13.5 % (11.5-14.5) Platelet Count 290 x10^3/uL (140-400) Neutrophils (%) (Auto) 45 % (31-73) Lymphocytes (%) (Auto) 47 % (24-48) Monocytes (%) (Auto) 6 % (0-9) Eosinophils (%) (Auto) 1 % (0-3) Basophils (%) (Auto) 1 % (0-3) Neutrophils # (Auto) 3.1 x10^3/uL (1.8-7.7) Lymphocytes # (Auto) 3.2 x10^3/uL (1.0-4.8) Monocytes # (Auto) 0.4 x10^3/uL (0.0-1.1) Eosinophils # (Auto) 0.1 x10^3/uL (0.0-0.7) Basophils # (Auto) 0.0 x10^3/uL (0.0-0.2) Prothrombin Time 12.5 SEC (11.7-14.0) Prothromb Time International Ratio 1.0 (0.8-1.1) Sodium Level 141 mmol/L (136-145) Potassium Level 5.2 mmol/L (3.5-5.1) Chloride Level 106 mmol/L (98-107) Carbon Dioxide Level 26 mmol/L (21-32) Anion Gap 9 (6-14) Blood Urea Nitrogen 12 mg/dL (7-20) Creatinine 0.9 mg/dL (0.6-1.0) Estimated GFR (Cockcroft-Gault) 76.5 BUN/Creatinine Ratio 13 (6-20) Glucose Level 135 mg/dL (70-99) Calcium Level 9.9 mg/dL (8.5-10.1) Total Bilirubin 0.4 mg/dL (0.2-1.0) Aspartate Amino Transf (AST/SGOT) 23 U/L (15-37) Alanine Aminotransferase (ALT/SGPT) 16 U/L (14-59) Alkaline Phosphatase 79 U/L (46-116) Troponin I Quantitative < 0.017 ng/mL (0.000-0.055) ME-Xoc-V-Type Natriuretic Peptide 46 pg/mL (0-124) Total Protein 7.5 g/dL (6.4-8.2) Albumin 3.7 g/dL (3.4-5.0) Albumin/Globulin Ratio 1.0 (1.0-1.7) Lipase 1420 U/L (73-393) VTE Prophylaxis Ordered VTE Prophylaxis Devices: Yes VTE Pharmacological Prophylaxi: Yes Assessment/Plan Assessment/Plan Impression: Acute pancreatitis Chest pain, ATYPICAL epigastric pain POSSIBLE GERD HYPERTENSION TOBACCO ABUSE DISORDER ADMITTED consult GI NPO IV FLUID SUPPORT CARDIOLOGY CONSULT SERIAL TROPONIN I 74 MIN PT EXAM, CHART REVIEW, > 50% OF TIME SPENT WITH EXAM, CHART REVIEW, PT CARE COORDINATION REBEL BHATT MD Mar 28, 2019 12:41
[2019-03-28 16:35] VITALS: BP 139/70
[2019-03-28] MEDS ORDERED: ATOR20TA58 PO (16:40)
[2019-03-28] MEDS ORDERED: BACL10TA PO (16:40)
[2019-03-28] MEDS ORDERED: LATA2.5D3 EACHEYE (16:40)
[2019-03-28] MEDS ORDERED: SITA1TAB11 PO (16:40)
[2019-03-28] MEDS ORDERED: LORazepam 0.5 MG TABLET PO PRN (17:00)
[2019-03-28] MEDS ORDERED: guaiFENesin ORAL 200 MG/10 ML LIQUID. PO PRN (17:00)
[2019-03-28] MEDS ORDERED: HYDROmorphone 2 MG/ML VIAL IV PRN (17:00)
[2019-03-28] MEDS ORDERED: DOCUSATE SODIUM 100 MG CAPSULE. PO PRN (17:00)
[2019-03-28] MEDS ORDERED: cloNIDine HCL 0.1 MG TABLET PO PRN (17:00)
[2019-03-28] MEDS ORDERED: 0.9 % SODIUM CHLORIDE 10 ML DISP.SYRIN. IV PRN (17:00)
[2019-03-28] MEDS ORDERED: ONDANSETRON PF 4 MG/2 ML VIAL. IV PRN (17:00)
[2019-03-28] MEDS ORDERED: diphenhydrAMINE 50 MG/ML VIAL IVP PRN (17:00)
[2019-03-28] MEDS ORDERED: ACETAMINOPHEN 325 MG TABLET. PO PRN (17:00)
[2019-03-28] MEDS ORDERED: ALBUTEROL SULFATE 2.5 MG/3 ML NEBU. NEB PRN (17:00)
[2019-03-28] MEDS ORDERED: CYCLOBENZAPRINE 10 MG TABLET. PO PRN (17:15)
[2019-03-28 19:10] VITALS: BP 127/59
[2019-03-28] MEDS: IV NORMAL SALINE 1000ML BAG 1,000 ML IV SCH (20:17)
[2019-03-28] MEDS ORDERED: ATORVASTATIN CALCIUM 20 MG TABLET PO SCH (21:00)
[2019-03-28] MEDS ORDERED: LATANOPROST 0.005% OPHTH SOLUTION 2.5ML BOTTLE. OU SCH (21:00)
[2019-03-28 23:10] VITALS: BP 117/57
[2019-03-29 02:21] LABS: BILIRUBIN,URINE NEGATIVE (NEG); CLARITY,URINE CLEAR; COLOR,URINE YELLOW; NITRITE,URINE NEGATIVE (NEG); PH,URINE 6.5; PROTEIN,URINE NEGATIVE (NEG-TRACE); UROBILINOGEN,URINE 0.2 mg/dL (0.2 mg/dL)
[2019-03-29 02:35] LABS: SQUAMOUS EPITHELIAL CELL,UR MANY /LPF
[2019-03-29 02:36] LABS: AMORPHOUS SEDIMENT,UR PRESENT /HPF; BACTERIA,URINE FEW /HPF (0-FEW); RBC,URINE 0 /HPF (0-2)
[2019-03-29 03:10] VITALS: BP 109/58
[2019-03-29] MEDS: IV NORMAL SALINE 1000ML BAG 1,000 ML IV SCH (04:15)
[2019-03-29 07:15] VITALS: BP 132/56
[2019-03-29 07:20] LABS: BASO # 0.1 x10^3/uL (0.0-0.2); BASO % 1 % (0-3); EOS # 0.1 x10^3/uL (0.0-0.7); EOS % 1 % (0-3); HEMATOCRIT 40.6 % (36.0-47.0); HEMOGLOBIN 13.7 g/dL (12.0-15.5); LYMPH # 3.6 x10^3/uL (1.0-4.8); LYMPH % 57 % (24-48); MEAN CORPUSCULAR HEMOGLOBIN 33 pg (25-35); MEAN CORPUSCULAR HGB CONC 34 g/dL (31-37); MEAN CORPUSCULAR VOLUME 98 fL (79-100); MONO # 0.4 x10^3/uL (0.0-1.1); MONO % 6 % (0-9); NEUT # 2.3 x10^3/uL (1.8-7.7); NEUT % 35 % (31-73); PLATELET COUNT 263 x10^3/uL (140-400); RED BLOOD COUNT 4.14 x10^6/uL (3.50-5.40); RED CELL DISTRIBUTION WIDTH 13.5 % (11.5-14.5); WHITE BLOOD COUNT 6.4 x10^3/uL (4.0-11.0)
[2019-03-29 07:42] LABS: ALBUMIN 3.4 g/dL (3.4-5.0); CALCIUM 8.9 mg/dL (8.5-10.1); CREATININE 0.9 mg/dL (0.6-1.0); GFR 76.5; POTASSIUM 4.2 mmol/L (3.5-5.1); TOTAL BILIRUBIN 0.3 mg/dL (0.2-1.0); TOTAL PROTEIN 6.8 g/dL (6.4-8.2)
--- NOTE | 2019-03-29 07:51 | PDOC ---
PROGRESS NOTES History of Present Illness History of Present Illness VTE Prophylaxis Ordered VTE Prophylaxis Devices: Yes VTE Pharmacological Prophylaxi: Yes Assessment/Plan Assessment/Plan Impression: Acute pancreatitis Chest pain, ATYPICAL epigastric pain POSSIBLE GERD HYPERTENSION TOBACCO ABUSE DISORDER ADMITTED consult GI NPO IV FLUID SUPPORT CARDIOLOGY CONSULT SERIAL TROPONIN I 34 MIN PT EXAM, CHART REVIEW d/c planning, left ama, > 50% OF TIME SPENT WITH EXAM, CHART REVIEW, PT CARE COORDINATION Vitals Vitals Vital Signs Date Time Temp Pulse Resp B/P (MAP) Pulse Ox O2 Delivery O2 Flow Rate FiO2 03/29/19 03:10 97.5 58 16 109/58 (75) 100 Room Air 97.5 Physical Exam General: Oriented X3, Cooperative, mild distress Extremities: No cyanosis Skin: No rashes, No significant lesion Labs LABS Laboratory Tests Test 03/28/19 11:21 03/28/19 11:51 03/28/19 16:48 03/28/19 21:53 Stool Occult Blood Negative (NEG) White Blood Count 6.8 x10^3/uL (4.0-11.0) Red Blood Count 4.23 x10^6/uL (3.50-5.40) Hemoglobin 14.0 g/dL (12.0-15.5) Hematocrit 41.2 % (36.0-47.0) Mean Corpuscular Volume 98 fL (79-100) Mean Corpuscular Hemoglobin 33 pg (25-35) Mean Corpuscular Hemoglobin Concent 34 g/dL (31-37) Red Cell Distribution Width 13.5 % (11.5-14.5) Platelet Count 290 x10^3/uL (140-400) Neutrophils (%) (Auto) 45 % (31-73) Lymphocytes (%) (Auto) 47 % (24-48) Monocytes (%) (Auto) 6 % (0-9) Eosinophils (%) (Auto) 1 % (0-3) Basophils (%) (Auto) 1 % (0-3) Neutrophils # (Auto) 3.1 x10^3/uL (1.8-7.7) Lymphocytes # (Auto) 3.2 x10^3/uL (1.0-4.8) Monocytes # (Auto) 0.4 x10^3/uL (0.0-1.1) Eosinophils # (Auto) 0.1 x10^3/uL (0.0-0.7) Basophils # (Auto) 0.0 x10^3/uL (0.0-0.2) Prothrombin Time 12.5 SEC (11.7-14.0) Prothromb Time International Ratio 1.0 (0.8-1.1) Sodium Level 141 mmol/L (136-145) Potassium Level 5.2 mmol/L (3.5-5.1) Chloride Level 106 mmol/L (98-107) Carbon Dioxide Level 26 mmol/L (21-32) Anion Gap 9 (6-14) Blood Urea Nitrogen 12 mg/dL (7-20) Creatinine 0.9 mg/dL (0.6-1.0) Estimated GFR (Cockcroft-Gault) 76.5 BUN/Creatinine Ratio 13 (6-20) Glucose Level 135 mg/dL (70-99) Calcium Level 9.9 mg/dL (8.5-10.1) Total Bilirubin 0.4 mg/dL (0.2-1.0) Aspartate Amino Transf (AST/SGOT) 23 U/L (15-37) Alanine Aminotransferase (ALT/SGPT) 16 U/L (14-59) Alkaline Phosphatase 79 U/L (46-116) Troponin I Quantitative < 0.017 ng/mL (0.000-0.055) SZ-Boa-[id number]-Type Natriuretic Peptide 46 pg/mL (0-124) Total Protein 7.5 g/dL (6.4-8.2) Albumin 3.7 g/dL (3.4-5.0) Albumin/Globulin Ratio 1.0 (1.0-1.7) Lipase 1420 U/L (73-393) Glucose (Fingerstick) 175 mg/dL (70-99) 181 mg/dL (70-99) Test 03/29/19 01:20 03/29/19 06:30 03/29/19 07:36 Urine Collection Type Unknown Urine Color Yellow Urine Clarity Clear Urine pH 6.5 Urine Specific [place] 1.020 Urine Protein Negative mg/dL (NEG-TRACE) Urine Glucose (UA) 100 mg/dL (NEG) Urine Ketones (Stick) Negative mg/dL (NEG) Urine Blood Negative (NEG) Urine Nitrite Negative (NEG) Urine Bilirubin Negative (NEG) Urine Urobilinogen Dipstick 0.2 mg/dL (0.2 mg/dL) Urine Leukocyte Esterase Trace (NEG) Urine RBC 0 /HPF (0-2) Urine WBC 1-4 /HPF (0-4) Urine Squamous Epithelial Cells Many /LPF Urine Calcium Phosphate Crystals /HPF Urine Amorphous Sediment Present /HPF Urine Bacteria Few /HPF (0-FEW) Urine Mucus Mod /LPF White Blood Count 6.4 x10^3/uL (4.0-11.0) Red Blood Count 4.14 x10^6/uL (3.50-5.40) Hemoglobin 13.7 g/dL (12.0-15.5) Hematocrit 40.6 % (36.0-47.0) Mean Corpuscular Volume 98 fL (79-100) Mean Corpuscular Hemoglobin 33 pg (25-35) Mean Corpuscular Hemoglobin Concent 34 g/dL (31-37) Red Cell Distribution Width 13.5 % (11.5-14.5) Platelet Count 263 x10^3/uL (140-400) Neutrophils (%) (Auto) 35 % (31-73) Lymphocytes (%) (Auto) 57 % (24-48) Monocytes (%) (Auto) 6 % (0-9) Eosinophils (%) (Auto) 1 % (0-3) Basophils (%) (Auto) 1 % (0-3) Neutrophils # (Auto) 2.3 x10^3/uL (1.8-7.7) Lymphocytes # (Auto) 3.6 x10^3/uL (1.0-4.8) Monocytes # (Auto) 0.4 x10^3/uL (0.0-1.1) Eosinophils # (Auto) 0.1 x10^3/uL (0.0-0.7) Basophils # (Auto) 0.1 x10^3/uL (0.0-0.2) Sodium Level 145 mmol/L (136-145) Potassium Level 4.2 mmol/L (3.5-5.1) Chloride Level 109 mmol/L (98-107) Carbon Dioxide Level 27 mmol/L (21-32) Anion Gap 9 (6-14) Blood Urea Nitrogen 14 mg/dL (7-20) Creatinine 0.9 mg/dL (0.6-1.0) Estimated GFR (Cockcroft-Gault) 76.5 BUN/Creatinine Ratio 16 (6-20) Glucose Level 121 mg/dL (70-99) Calcium Level 8.9 mg/dL (8.5-10.1) Total Bilirubin 0.3 mg/dL (0.2-1.0) Aspartate Amino Transf (AST/SGOT) 16 U/L (15-37) Alanine Aminotransferase (ALT/SGPT) 17 U/L (14-59) Alkaline Phosphatase 68 U/L (46-116) Total Protein 6.8 g/dL (6.4-8.2) Albumin 3.4 g/dL (3.4-5.0) Albumin/Globulin Ratio 1.0 (1.0-1.7) Glucose (Fingerstick) 142 mg/dL (70-99) Assessment and Plan Assessmemt and Plan Problems Medical Problems: (1) Acute pancreatitis Status: Acute (2) Chest pain Status: Acute Comment Review of Relevant I have reviewed the following items juan (where applicable) has been applied. Labs Laboratory Tests Test 03/28/19 11:21 03/28/19 11:51 03/28/19 16:48 03/28/19 21:53 Stool Occult Blood Negative (NEG) White Blood Count 6.8 x10^3/uL (4.0-11.0) Red Blood Count 4.23 x10^6/uL (3.50-5.40) Hemoglobin 14.0 g/dL (12.0-15.5) Hematocrit 41.2 % (36.0-47.0) Mean Corpuscular Volume 98 fL (79-100) Mean Corpuscular Hemoglobin 33 pg (25-35) Mean Corpuscular Hemoglobin Concent 34 g/dL (31-37) Red Cell Distribution Width 13.5 % (11.5-14.5) Platelet Count 290 x10^3/uL (140-400) Neutrophils (%) (Auto) 45 % (31-73) Lymphocytes (%) (Auto) 47 % (24-48) Monocytes (%) (Auto) 6 % (0-9) Eosinophils (%) (Auto) 1 % (0-3) Basophils (%) (Auto) 1 % (0-3) Neutrophils # (Auto) 3.1 x10^3/uL (1.8-7.7) Lymphocytes # (Auto) 3.2 x10^3/uL (1.0-4.8) Monocytes # (Auto) 0.4 x10^3/uL (0.0-1.1) Eosinophils # (Auto) 0.1 x10^3/uL (0.0-0.7) Basophils # (Auto) 0.0 x10^3/uL (0.0-0.2) Prothrombin Time 12.5 SEC (11.7-14.0) Prothromb Time International Ratio 1.0 (0.8-1.1) Sodium Level 141 mmol/L (136-145) Potassium Level 5.2 mmol/L (3.5-5.1) Chloride Level 106 mmol/L (98-107) Carbon Dioxide Level 26 mmol/L (21-32) Anion Gap 9 (6-14) Blood Urea Nitrogen 12 mg/dL (7-20) Creatinine 0.9 mg/dL (0.6-1.0) Estimated GFR (Cockcroft-Gault) 76.5 BUN/Creatinine Ratio 13 (6-20) Glucose Level 135 mg/dL (70-99) Calcium Level 9.9 mg/dL (8.5-10.1) Total Bilirubin 0.4 mg/dL (0.2-1.0) Aspartate Amino Transf (AST/SGOT) 23 U/L (15-37) Alanine Aminotransferase (ALT/SGPT) 16 U/L (14-59) Alkaline Phosphatase 79 U/L (46-116) Troponin I Quantitative < 0.017 ng/mL (0.000-0.055) DN-Tqo-Y-Type Natriuretic Peptide 46 pg/mL (0-124) Total Protein 7.5 g/dL (6.4-8.2) Albumin 3.7 g/dL (3.4-5.0) Albumin/Globulin Ratio 1.0 (1.0-1.7) Lipase 1420 U/L (73-393) Glucose (Fingerstick) 175 mg/dL (70-99) 181 mg/dL (70-99) Test 03/29/19 01:20 03/29/19 06:30 03/29/19 07:36 Urine Collection Type Unknown Urine Color Yellow Urine Clarity Clear Urine pH 6.5 Urine Specific [place] 1.020 Urine Protein Negative mg/dL (NEG-TRACE) Urine Glucose (UA) 100 mg/dL (NEG) Urine Ketones (Stick) Negative mg/dL (NEG) Urine Blood Negative (NEG) Urine Nitrite Negative (NEG) Urine Bilirubin Negative (NEG) Urine Urobilinogen Dipstick 0.2 mg/dL (0.2 mg/dL) Urine Leukocyte Esterase Trace (NEG) Urine RBC 0 /HPF (0-2) Urine WBC 1-4 /HPF (0-4) Urine Squamous Epithelial Cells Many /LPF Urine Calcium Phosphate Crystals /HPF Urine Amorphous Sediment Present /HPF Urine Bacteria Few /HPF (0-FEW) Urine Mucus Mod /LPF White Blood Count 6.4 x10^3/uL (4.0-11.0) Red Blood Count 4.14 x10^6/uL (3.50-5.40) Hemoglobin 13.7 g/dL (12.0-15.5) Hematocrit 40.6 % (36.0-47.0) Mean Corpuscular Volume 98 fL (79-100) Mean Corpuscular Hemoglobin 33 pg (25-35) Mean Corpuscular Hemoglobin Concent 34 g/dL (31-37) Red Cell Distribution Width 13.5 % (11.5-14.5) Platelet Count 263 x10^3/uL (140-400) Neutrophils (%) (Auto) 35 % (31-73) Lymphocytes (%) (Auto) 57 % (24-48) Monocytes (%) (Auto) 6 % (0-9) Eosinophils (%) (Auto) 1 % (0-3) Basophils (%) (Auto) 1 % (0-3) Neutrophils # (Auto) 2.3 x10^3/uL (1.8-7.7) Lymphocytes # (Auto) 3.6 x10^3/uL (1.0-4.8) Monocytes # (Auto) 0.4 x10^3/uL (0.0-1.1) Eosinophils # (Auto) 0.1 x10^3/uL (0.0-0.7) Basophils # (Auto) 0.1 x10^3/uL (0.0-0.2) Sodium Level 145 mmol/L (136-145) Potassium Level 4.2 mmol/L (3.5-5.1) Chloride Level 109 mmol/L (98-107) Carbon Dioxide Level 27 mmol/L (21-32) Anion Gap 9 (6-14) Blood Urea Nitrogen 14 mg/dL (7-20) Creatinine 0.9 mg/dL (0.6-1.0) Estimated GFR (Cockcroft-Gault) 76.5 BUN/Creatinine Ratio 16 (6-20) Glucose Level 121 mg/dL (70-99) Calcium Level 8.9 mg/dL (8.5-10.1) Total Bilirubin 0.3 mg/dL (0.2-1.0) Aspartate Amino Transf (AST/SGOT) 16 U/L (15-37) Alanine Aminotransferase (ALT/SGPT) 17 U/L (14-59) Alkaline Phosphatase 68 U/L (46-116) Total Protein 6.8 g/dL (6.4-8.2) Albumin 3.4 g/dL (3.4-5.0) Albumin/Globulin Ratio 1.0 (1.0-1.7) Glucose (Fingerstick) 142 mg/dL (70-99) Laboratory Tests Test 03/28/19 11:21 03/28/19 11:51 03/28/19 16:48 03/28/19 21:53 Stool Occult Blood Negative (NEG) White Blood Count 6.8 x10^3/uL (4.0-11.0) Red Blood Count 4.23 x10^6/uL (3.50-5.40) Hemoglobin 14.0 g/dL (12.0-15.5) Hematocrit 41.2 % (36.0-47.0) Mean Corpuscular Volume 98 fL (79-100) Mean Corpuscular Hemoglobin 33 pg (25-35) Mean Corpuscular Hemoglobin Concent 34 g/dL (31-37) Red Cell Distribution Width 13.5 % (11.5-14.5) Platelet Count 290 x10^3/uL (140-400) Neutrophils (%) (Auto) 45 % (31-73) Lymphocytes (%) (Auto) 47 % (24-48) Monocytes (%) (Auto) 6 % (0-9) Eosinophils (%) (Auto) 1 % (0-3) Basophils (%) (Auto) 1 % (0-3) Neutrophils # (Auto) 3.1 x10^3/uL (1.8-7.7) Lymphocytes # (Auto) 3.2 x10^3/uL (1.0-4.8) Monocytes # (Auto) 0.4 x10^3/uL (0.0-1.1) Eosinophils # (Auto) 0.1 x10^3/uL (0.0-0.7) Basophils # (Auto) 0.0 x10^3/uL (0.0-0.2) Prothrombin Time 12.5 SEC (11.7-14.0) Prothromb Time International Ratio 1.0 (0.8-1.1) Sodium Level 141 mmol/L (136-145) Potassium Level 5.2 mmol/L (3.5-5.1) Chloride Level 106 mmol/L (98-107) Carbon Dioxide Level 26 mmol/L (21-32) Anion Gap 9 (6-14) Blood Urea Nitrogen 12 mg/dL (7-20) Creatinine 0.9 mg/dL (0.6-1.0) Estimated GFR (Cockcroft-Gault) 76.5 BUN/Creatinine Ratio 13 (6-20) Glucose Level 135 mg/dL (70-99) Calcium Level 9.9 mg/dL (8.5-10.1) Total Bilirubin 0.4 mg/dL (0.2-1.0) Aspartate Amino Transf (AST/SGOT) 23 U/L (15-37) Alanine Aminotransferase (ALT/SGPT) 16 U/L (14-59) Alkaline Phosphatase 79 U/L (46-116) Troponin I Quantitative < 0.017 ng/mL (0.000-0.055) LS-Oeq-N-Type Natriuretic Peptide 46 pg/mL (0-124) Total Protein 7.5 g/dL (6.4-8.2) Albumin 3.7 g/dL (3.4-5.0) Albumin/Globulin Ratio 1.0 (1.0-1.7) Lipase 1420 U/L (73-393) Glucose (Fingerstick) 175 mg/dL (70-99) 181 mg/dL (70-99) Test 03/29/19 01:20 03/29/19 06:30 03/29/19 07:36 Urine Collection Type Unknown Urine Color Yellow Urine Clarity Clear Urine pH 6.5 Urine Specific [place] 1.020 Urine Protein Negative mg/dL (NEG-TRACE) Urine Glucose (UA) 100 mg/dL (NEG) Urine Ketones (Stick) Negative mg/dL (NEG) Urine Blood Negative (NEG) Urine Nitrite Negative (NEG) Urine Bilirubin Negative (NEG) Urine Urobilinogen Dipstick 0.2 mg/dL (0.2 mg/dL) Urine Leukocyte Esterase Trace (NEG) Urine RBC 0 /HPF (0-2) Urine WBC 1-4 /HPF (0-4) Urine Squamous Epithelial Cells Many /LPF Urine Calcium Phosphate Crystals /HPF Urine Amorphous Sediment Present /HPF Urine Bacteria Few /HPF (0-FEW) Urine Mucus Mod /LPF White Blood Count 6.4 x10^3/uL (4.0-11.0) Red Blood Count 4.14 x10^6/uL (3.50-5.40) Hemoglobin 13.7 g/dL (12.0-15.5) Hematocrit 40.6 % (36.0-47.0) Mean Corpuscular Volume 98 fL (79-100) Mean Corpuscular Hemoglobin 33 pg (25-35) Mean Corpuscular Hemoglobin Concent 34 g/dL (31-37) Red Cell Distribution Width 13.5 % (11.5-14.5) Platelet Count 263 x10^3/uL (140-400) Neutrophils (%) (Auto) 35 % (31-73) Lymphocytes (%) (Auto) 57 % (24-48) Monocytes (%) (Auto) 6 % (0-9) Eosinophils (%) (Auto) 1 % (0-3) Basophils (%) (Auto) 1 % (0-3) Neutrophils # (Auto) 2.3 x10^3/uL (1.8-7.7) Lymphocytes # (Auto) 3.6 x10^3/uL (1.0-4.8) Monocytes # (Auto) 0.4 x10^3/uL (0.0-1.1) Eosinophils # (Auto) 0.1 x10^3/uL (0.0-0.7) Basophils # (Auto) 0.1 x10^3/uL (0.0-0.2) Sodium Level 145 mmol/L (136-145) Potassium Level 4.2 mmol/L (3.5-5.1) Chloride Level 109 mmol/L (98-107) Carbon Dioxide Level 27 mmol/L (21-32) Anion Gap 9 (6-14) Blood Urea Nitrogen 14 mg/dL (7-20) Creatinine 0.9 mg/dL (0.6-1.0) Estimated GFR (Cockcroft-Gault) 76.5 BUN/Creatinine Ratio 16 (6-20) Glucose Level 121 mg/dL (70-99) Calcium Level 8.9 mg/dL (8.5-10.1) Total Bilirubin 0.3 mg/dL (0.2-1.0) Aspartate Amino Transf (AST/SGOT) 16 U/L (15-37) Alanine Aminotransferase (ALT/SGPT) 17 U/L (14-59) Alkaline Phosphatase 68 U/L (46-116) Total Protein 6.8 g/dL (6.4-8.2) Albumin 3.4 g/dL (3.4-5.0) Albumin/Globulin Ratio 1.0 (1.0-1.7) Glucose (Fingerstick) 142 mg/dL (70-99) Medications Current Medications Aspirin (Children'S Aspirin) 162 mg 1X ONCE PO Last administered on 03/28/19at 11:52; Start 03/28/19 at 11:30; Stop 03/28/19 at 11:32; Status DC Multi-Ingredient Mouthwash/Gargle (Gi Cocktail) 20 ml 1X ONCE SWSW Last administered on 03/28/19at 11:52; Start 03/28/19 at 12:00; Stop 03/28/19 at 12:01; Status DC Sodium Chloride (Normal Saline Flush) 3 ml QSHIFT PRN IV AFTER MEDS AND BLOOD DRAWS; Start 03/28/19 at 17:00 Sodium Chloride 1,000 ml @ 100 mls/hr Q10H IV Last administered on 03/29/19at 04:15; Start 03/28/19 at 16:51 Ondansetron HCl (Zofran) 4 mg PRN Q4HRS PRN IV NAUSEA/VOMITING; Start 03/28/19 at 17:00 Acetaminophen (Tylenol) 650 mg PRN Q4HRS PRN PO TEMP OVER 100.4F OR MILD PAIN; Start 03/28/19 at 17:00 Clonidine HCl (Catapres) 0.1 mg PRN Q6HRS PRN PO SBP>160 OR DBP>90; Start 03/28/19 at 17:00 Diphenhydramine HCl (Benadryl) 25 mg PRN Q4HRS PRN IVP ITCHING; Start 03/28/19 at 17:00 Docusate Sodium (Colace) 100 mg PRN BID PRN PO CONSTIPATION; Start 03/28/19 at 17:00 Albuterol Sulfate (Ventolin Neb Soln) 2.5 mg PRN Q4HRS PRN NEB SHORTNESS OF BREATH; Start 03/28/19 at 17:00 Guaifenesin (Robitussin) 200 mg PRN Q4HRS PRN PO COUGH; Start 03/28/19 at 17:00 Lorazepam (Ativan) 0.5 mg PRN Q4HRS PRN PO ANXIETY / AGITATION; Start 03/28/19 at 17:00 Enoxaparin Sodium (Lovenox 40mg Syringe) 40 mg DAILY SQ ; Start 03/29/19 at 09:00 Hydromorphone HCl (Dilaudid) 1 mg PRN Q4HRS PRN IV SEVERE PAIN 7-10; Start 03/28/19 at 17:00 Atorvastatin Calcium (Lipitor) 20 mg QHS PO ; Start 03/28/19 at 21:00 Latanoprost (Xalatan) 1 drop QHS OU Last administered on 03/28/19at 21:14; Start 03/28/19 at 21:00 Lisinopril (Prinivil) 10 mg DAILY PO ; Start 03/29/19 at 09:00 Cyclobenzaprine HCl (Flexeril) 10 mg PRN TID PRN PO MUSCLE SPASMS; Start 03/28/19 at 17:15 Active Scripts Active Lisinopril 10 Mg Tablet 1 Tab PO DAILY 30 Days Lantus Solostar (Insulin Glargine,Hum.rec.anlog) 100 Unit/1 Ml Insuln.pen 35 Unit SQ QHS 30 Days Reported Latanoprost 2.5 Ml Drops 1 Drop EACHEYE QHS Baclofen 10 Mg Tablet 1 Tab PO PRN TID PRN Janumet 50-1,000 Mg Tablet (Sitagliptin Phos/Metformin Hcl) 1 Each Tablet 1 Tab PO BID Atorvastatin Calcium 20 Mg Tablet 1 Tab PO DAILY Vitals/I & O Vital Sign - Last 24 Hours 03/28/19 03/28/19 03/28/19 03/28/19 10:56 11:30 12:26 13:00 Temp 98.4 98.4 Pulse 75 74 69 64 Resp 18 18 16 18 B/P (MAP) 128/66 (86) 152/67 (95) 112/64 (80) 133/61 (85) Pulse Ox 100 99 99 98 O2 Delivery Room Air Room Air Room Air Room Air 03/28/19 03/28/19 03/28/19 03/28/19 13:30 14:00 14:57 16:35 Temp 97.3 97.3 Pulse 62 62 58 70 Resp 8 18 18 18 B/P (MAP) 128/61 (83) 136/63 (87) 139/63 (88) 139/70 (93) Pulse Ox 98 98 99 96 O2 Delivery Room Air Room Air Room Air Room Air 03/28/19 03/28/19 03/28/19 03/29/19 19:10 19:45 23:10 03:10 Temp 97.9 98.0 97.5 97.9 98.0 97.5 Pulse 70 58 58 Resp 16 16 16 B/P (MAP) 127/59 (81) 117/57 (77) 109/58 (75) Pulse Ox 99 99 100 O2 Delivery Room Air Room Air Room Air Room Air Intake and Output 03/28/19 03/28/19 03/29/19 14:59 22:59 06:59 Intake Total 950 ml Balance 950 ml REBEL BHATT MD Mar 29, 2019 07:51
--- NOTE | 2019-03-29 08:38 | PDOC ---
Objective: Vital Signs: Vital Signs Date Time Temp Pulse Resp B/P (MAP) Pulse Ox O2 Delivery O2 Flow Rate FiO2 03/29/19 07:15 98.1 75 18 132/56 (81) 99 Room Air 98.1 Labs: Laboratory Tests Test 03/28/19 11:21 03/28/19 11:51 03/28/19 16:48 03/28/19 21:53 Stool Occult Blood Negative White Blood Count 6.8 x10^3/uL Red Blood Count 4.23 x10^6/uL Hemoglobin 14.0 g/dL Hematocrit 41.2 % Mean Corpuscular Volume 98 fL Mean Corpuscular Hemoglobin 33 pg Mean Corpuscular Hemoglobin Concent 34 g/dL Red Cell Distribution Width 13.5 % Platelet Count 290 x10^3/uL Neutrophils (%) (Auto) 45 % Lymphocytes (%) (Auto) 47 % Monocytes (%) (Auto) 6 % Eosinophils (%) (Auto) 1 % Basophils (%) (Auto) 1 % Neutrophils # (Auto) 3.1 x10^3/uL Lymphocytes # (Auto) 3.2 x10^3/uL Monocytes # (Auto) 0.4 x10^3/uL Eosinophils # (Auto) 0.1 x10^3/uL Basophils # (Auto) 0.0 x10^3/uL Prothrombin Time 12.5 SEC Prothromb Time International Ratio 1.0 Sodium Level 141 mmol/L Potassium Level 5.2 mmol/L Chloride Level 106 mmol/L Carbon Dioxide Level 26 mmol/L Anion Gap 9 Blood Urea Nitrogen 12 mg/dL Creatinine 0.9 mg/dL Estimated GFR (Cockcroft-Gault) 76.5 BUN/Creatinine Ratio 13 Glucose Level 135 mg/dL Calcium Level 9.9 mg/dL Total Bilirubin 0.4 mg/dL Aspartate Amino Transf (AST/SGOT) 23 U/L Alanine Aminotransferase (ALT/SGPT) 16 U/L Alkaline Phosphatase 79 U/L Troponin I Quantitative < 0.017 ng/mL FH-Srq-V-Type Natriuretic Peptide 46 pg/mL Total Protein 7.5 g/dL Albumin 3.7 g/dL Albumin/Globulin Ratio 1.0 Lipase 1420 U/L Glucose (Fingerstick) 175 mg/dL 181 mg/dL Test 03/29/19 01:20 03/29/19 06:30 03/29/19 07:36 Urine Collection Type Unknown Urine Color Yellow Urine Clarity Clear Urine pH 6.5 Urine Specific [place] 1.020 Urine Protein Negative mg/dL Urine Glucose (UA) 100 mg/dL Urine Ketones (Stick) Negative mg/dL Urine Blood Negative Urine Nitrite Negative Urine Bilirubin Negative Urine Urobilinogen Dipstick 0.2 mg/dL Urine Leukocyte Esterase Trace Urine RBC 0 /HPF Urine WBC 1-4 /HPF Urine Squamous Epithelial Cells Many /LPF Urine Calcium Phosphate Crystals /HPF Urine Amorphous Sediment Present /HPF Urine Bacteria Few /HPF Urine Mucus Mod /LPF White Blood Count 6.4 x10^3/uL Red Blood Count 4.14 x10^6/uL Hemoglobin 13.7 g/dL Hematocrit 40.6 % Mean Corpuscular Volume 98 fL Mean Corpuscular Hemoglobin 33 pg Mean Corpuscular Hemoglobin Concent 34 g/dL Red Cell Distribution Width 13.5 % Platelet Count 263 x10^3/uL Neutrophils (%) (Auto) 35 % Lymphocytes (%) (Auto) 57 % Monocytes (%) (Auto) 6 % Eosinophils (%) (Auto) 1 % Basophils (%) (Auto) 1 % Neutrophils # (Auto) 2.3 x10^3/uL Lymphocytes # (Auto) 3.6 x10^3/uL Monocytes # (Auto) 0.4 x10^3/uL Eosinophils # (Auto) 0.1 x10^3/uL Basophils # (Auto) 0.1 x10^3/uL Sodium Level 145 mmol/L Potassium Level 4.2 mmol/L Chloride Level 109 mmol/L Carbon Dioxide Level 27 mmol/L Anion Gap 9 Blood Urea Nitrogen 14 mg/dL Creatinine 0.9 mg/dL Estimated GFR (Cockcroft-Gault) 76.5 BUN/Creatinine Ratio 16 Glucose Level 121 mg/dL Calcium Level 8.9 mg/dL Total Bilirubin 0.3 mg/dL Aspartate Amino Transf (AST/SGOT) 16 U/L Alanine Aminotransferase (ALT/SGPT) 17 U/L Alkaline Phosphatase 68 U/L Total Protein 6.8 g/dL Albumin 3.4 g/dL Albumin/Globulin Ratio 1.0 Glucose (Fingerstick) 142 mg/dL Imaging: CXR 03/28 Impression: 1. No acute cardiopulmonary process. CT A/P ordered yesterday - EMR says "taken" - no report PE: GEN: has gown lifted with breasts exposed removing tele stickers when I entered - speaks clearly, on room air, has walker in hand A/P: Pancreatitis -- I saw her this morning. She was upset and has chosen to leave AMA. She wanted the doctor to email or call her if he couldn't come to see her in person (though saw ER physician and hospitalist yesterday). She says the nurses were not intelligent enough and the lab did not draw her blood correctly. She says she was "left to " overnight and that she had a right to discuss her labs and workup with a doctor. She also says the insurance information she provided was not the insurance "that handles this." I told her if she decided to stay I would be happy to come back and discuss her GI issues with her and form a treatment plan. Nurse Veronica present during our interaction. HUBER JONES Mar 29, 2019 08:38
[2019-03-29] MEDS ORDERED: LISINOPRIL 10 MG TABLET PO SCH (09:00)
[2019-03-29] MEDS ORDERED: ENOXAPARIN 40 MG/0.4 ML SYRINGE. SQ SCH (09:00)
--- NOTE | 2019-03-29 09:41 | NUR ---
During shift report at 0700, the patient said that she wants to talk to the head nurse. Spoke with the charge nurse and informed her of the patient's concern. At 0840, this nurse went to her room to give meds and do physical assessment. The patient said she's upset with the staff and how the diagnostics were coordinated. She said she's going to leave. The patient pulled her operations liaison and had her IV removed by this nurse. I explained that the physician is requesting a 2d echo for additional work up. She replied that she's refusing to take her meds and further diagnostics, and wants to talk to the doctor first.The patient said she'll leave at [address]. Paged Dr[address] Duran at 0915 and informed him of the situation. At 0935, patient decided to go home against medical advice fully aware of the consequences of her decision. She signed the form and requested a copy. The patient left the unit at 0840, ambulatory, accompanied by the hospital lead security officer. Notified the attending physician.
--- NOTE | 2019-03-29 10:20 | PDOC3 ---
Discharge Summary Date of Admission: Mar 28, 2019 Date of Discharge: Mar 29, 2019 Follow-Up: 3-5 days, Other (left ama) Admitting Diagnosis comment: VTE Prophylaxis Ordered VTE Prophylaxis Devices: Yes VTE Pharmacological Prophylaxi: Yes discharge dx Assessment/Plan Impression: Acute pancreatitis Chest pain, ATYPICAL epigastric pain POSSIBLE GERD HYPERTENSION TOBACCO ABUSE DISORDER ADMITTED consult GI NPO IV FLUID SUPPORT CARDIOLOGY CONSULT SERIAL TROPONIN I 34 MIN PT EXAM, CHART REVIEW d/c planning, patient left ama, > 50% OF TIME SPENT WITH EXAM, CHART REVIEW, PT CARE COORDINATION FINAL DIAGNOSIS Problems Medical Problems: (1) Acute pancreatitis Status: Acute (2) Chest pain Status: Acute Brief Hospital Course Ms. Jackson is a 63 old [sex] who presented with [ ] CONDITION AT DISCHARGE: Comment (left ama) Discharge Medications Current Medications Aspirin (Children'S Aspirin) 162 mg 1X ONCE PO Last administered on 03/28/19at 11:52; Start 03/28/19 at 11:30; Stop 03/28/19 at 11:32; Status DC Multi-Ingredient Mouthwash/Gargle (Gi Cocktail) 20 ml 1X ONCE SWSW Last administered on 03/28/19at 11:52; Start 03/28/19 at 12:00; Stop 03/28/19 at 12:01; Status DC Sodium Chloride (Normal Saline Flush) 3 ml QSHIFT PRN IV AFTER MEDS AND BLOOD DRAWS; Start 03/28/19 at 17:00 Sodium Chloride 1,000 ml @ 100 mls/hr Q10H IV Last administered on 03/29/19at 04:15; Start 03/28/19 at 16:51 Ondansetron HCl (Zofran) 4 mg PRN Q4HRS PRN IV NAUSEA/VOMITING; Start 03/28/19 at 17:00 Acetaminophen (Tylenol) 650 mg PRN Q4HRS PRN PO TEMP OVER 100.4F OR MILD PAIN; Start 03/28/19 at 17:00 Clonidine HCl (Catapres) 0.1 mg PRN Q6HRS PRN PO SBP>160 OR DBP>90; Start 03/28/19 at 17:00 Diphenhydramine HCl (Benadryl) 25 mg PRN Q4HRS PRN IVP ITCHING; Start 03/28/19 at 17:00 Docusate Sodium (Colace) 100 mg PRN BID PRN PO CONSTIPATION; Start 03/28/19 at 17:00 Albuterol Sulfate (Ventolin Neb Soln) 2.5 mg PRN Q4HRS PRN NEB SHORTNESS OF BREATH; Start 03/28/19 at 17:00 Guaifenesin (Robitussin) 200 mg PRN Q4HRS PRN PO COUGH; Start 03/28/19 at 17:00 Lorazepam (Ativan) 0.5 mg PRN Q4HRS PRN PO ANXIETY / AGITATION; Start 03/28/19 at 17:00 Enoxaparin Sodium (Lovenox 40mg Syringe) 40 mg DAILY SQ ; Start 03/29/19 at 09:00 Hydromorphone HCl (Dilaudid) 1 mg PRN Q4HRS PRN IV SEVERE PAIN 7-10; Start 03/28/19 at 17:00 Atorvastatin Calcium (Lipitor) 20 mg QHS PO ; Start 03/28/19 at 21:00 Latanoprost (Xalatan) 1 drop QHS OU Last administered on 03/28/19at 21:14; Start 03/28/19 at 21:00 Lisinopril (Prinivil) 10 mg DAILY PO ; Start 03/29/19 at 09:00 Cyclobenzaprine HCl (Flexeril) 10 mg PRN TID PRN PO MUSCLE SPASMS; Start 03/28/19 at 17:15 Active Scripts Active Lisinopril 10 Mg Tablet 1 Tab PO DAILY 30 Days Lantus Solostar (Insulin Glargine,Hum.rec.anlog) 100 Unit/1 Ml Insuln.pen 35 Unit SQ QHS 30 Days Reported Latanoprost 2.5 Ml Drops 1 Drop EACHEYE QHS Baclofen 10 Mg Tablet 1 Tab PO PRN TID PRN Janumet 50-1,000 Mg Tablet (Sitagliptin Phos/Metformin Hcl) 1 Each Tablet 1 Tab PO BID Atorvastatin Calcium 20 Mg Tablet 1 Tab PO DAILY Vital Signs Vital Signs Date Time Temp Pulse Resp B/P (MAP) Pulse Ox O2 Delivery O2 Flow Rate FiO2 03/29/19 07:15 98.1 75 18 132/56 (81) 99 Room Air 98.1 Labs Laboratory Tests Test 03/28/19 11:21 9/12/19 11:51 03/28/19 16:48 03/28/19 21:53 Stool Occult Blood Negative (NEG) White Blood Count 6.8 x10^3/uL (4.0-11.0) Red Blood Count 4.23 x10^6/uL (3.50-5.40) Hemoglobin 14.0 g/dL (12.0-15.5) Hematocrit 41.2 % (36.0-47.0) Mean Corpuscular Volume 98 fL (79-100) Mean Corpuscular Hemoglobin 33 pg (25-35) Mean Corpuscular Hemoglobin Concent 34 g/dL (31-37) Red Cell Distribution Width 13.5 % (11.5-14.5) Platelet Count 290 x10^3/uL (140-400) Neutrophils (%) (Auto) 45 % (31-73) Lymphocytes (%) (Auto) 47 % (24-48) Monocytes (%) (Auto) 6 % (0-9) Eosinophils (%) (Auto) 1 % (0-3) Basophils (%) (Auto) 1 % (0-3) Neutrophils # (Auto) 3.1 x10^3/uL (1.8-7.7) Lymphocytes # (Auto) 3.2 x10^3/uL (1.0-4.8) Monocytes # (Auto) 0.4 x10^3/uL (0.0-1.1) Eosinophils # (Auto) 0.1 x10^3/uL (0.0-0.7) Basophils # (Auto) 0.0 x10^3/uL (0.0-0.2) Prothrombin Time 12.5 SEC (11.7-14.0) Prothromb Time International Ratio 1.0 (0.8-1.1) Sodium Level 141 mmol/L (136-145) Potassium Level 5.2 mmol/L (3.5-5.1) Chloride Level 106 mmol/L (98-107) Carbon Dioxide Level 26 mmol/L (21-32) Anion Gap 9 (6-14) Blood Urea Nitrogen 12 mg/dL (7-20) Creatinine 0.9 mg/dL (0.6-1.0) Estimated GFR (Cockcroft-Gault) 76.5 BUN/Creatinine Ratio 13 (6-20) Glucose Level 135 mg/dL (70-99) Calcium Level 9.9 mg/dL (8.5-10.1) Total Bilirubin 0.4 mg/dL (0.2-1.0) Aspartate Amino Transf (AST/SGOT) 23 U/L (15-37) Alanine Aminotransferase (ALT/SGPT) 16 U/L (14-59) Alkaline Phosphatase 79 U/L (46-116) Troponin I Quantitative < 0.017 ng/mL (0.000-0.055) RK-Bej-O-Type Natriuretic Peptide 46 pg/mL (0-124) Total Protein 7.5 g/dL (6.4-8.2) Albumin 3.7 g/dL (3.4-5.0) Albumin/Globulin Ratio 1.0 (1.0-1.7) Lipase 1420 U/L (73-393) Glucose (Fingerstick) 175 mg/dL (70-99) 181 mg/dL (70-99) Test 03/29/19 01:20 03/29/19 06:30 03/29/19 07:36 Urine Collection Type Unknown Urine Color Yellow Urine Clarity Clear Urine pH 6.5 Urine Specific Foley 1.020 Urine Protein Negative mg/dL (NEG-TRACE) Urine Glucose (UA) 100 mg/dL (NEG) Urine Ketones (Stick) Negative mg/dL (NEG) Urine Blood Negative (NEG) Urine Nitrite Negative (NEG) Urine Bilirubin Negative (NEG) Urine Urobilinogen Dipstick 0.2 mg/dL (0.2 mg/dL) Urine Leukocyte Esterase Trace (NEG) Urine RBC 0 /HPF (0-2) Urine WBC 1-4 /HPF (0-4) Urine Squamous Epithelial Cells Many /LPF Urine Calcium Phosphate Crystals /HPF Urine Amorphous Sediment Present /HPF Urine Bacteria Few /HPF (0-FEW) Urine Mucus Mod /LPF White Blood Count 6.4 x10^3/uL (4.0-11.0) Red Blood Count 4.14 x10^6/uL (3.50-5.40) Hemoglobin 13.7 g/dL (12.0-15.5) Hematocrit 40.6 % (36.0-47.0) Mean Corpuscular Volume 98 fL (79-100) Mean Corpuscular Hemoglobin 33 pg (25-35) Mean Corpuscular Hemoglobin Concent 34 g/dL (31-37) Red Cell Distribution Width 13.5 % (11.5-14.5) Platelet Count 263 x10^3/uL (140-400) Neutrophils (%) (Auto) 35 % (31-73) Lymphocytes (%) (Auto) 57 % (24-48) Monocytes (%) (Auto) 6 % (0-9) Eosinophils (%) (Auto) 1 % (0-3) Basophils (%) (Auto) 1 % (0-3) Neutrophils # (Auto) 2.3 x10^3/uL (1.8-7.7) Lymphocytes # (Auto) 3.6 x10^3/uL (1.0-4.8) Monocytes # (Auto) 0.4 x10^3/uL (0.0-1.1) Eosinophils # (Auto) 0.1 x10^3/uL (0.0-0.7) Basophils # (Auto) 0.1 x10^3/uL (0.0-0.2) Sodium Level 145 mmol/L (136-145) Potassium Level 4.2 mmol/L (3.5-5.1) Chloride Level 109 mmol/L (98-107) Carbon Dioxide Level 27 mmol/L (21-32) Anion Gap 9 (6-14) Blood Urea Nitrogen 14 mg/dL (7-20) Creatinine 0.9 mg/dL (0.6-1.0) Estimated GFR (Cockcroft-Gault) 76.5 BUN/Creatinine Ratio 16 (6-20) Glucose Level 121 mg/dL (70-99) Calcium Level 8.9 mg/dL (8.5-10.1) Total Bilirubin 0.3 mg/dL (0.2-1.0) Aspartate Amino Transf (AST/SGOT) 16 U/L (15-37) Alanine Aminotransferase (ALT/SGPT) 17 U/L (14-59) Alkaline Phosphatase 68 U/L (46-116) Total Protein 6.8 g/dL (6.4-8.2) Albumin 3.4 g/dL (3.4-5.0) Albumin/Globulin Ratio 1.0 (1.0-1.7) Lipase 336 U/L (73-393) Glucose (Fingerstick) 142 mg/dL (70-99) Laboratory Tests Test 03/28/19 11:21 03/28/19 11:51 03/28/19 16:48 03/28/19 21:53 Stool Occult Blood Negative (NEG) White Blood Count 6.8 x10^3/uL (4.0-11.0) Red Blood Count 4.23 x10^6/uL (3.50-5.40) Hemoglobin 14.0 g/dL (12.0-15.5) Hematocrit 41.2 % (36.0-47.0) Mean Corpuscular Volume 98 fL (79-100) Mean Corpuscular Hemoglobin 33 pg (25-35) Mean Corpuscular Hemoglobin Concent 34 g/dL (31-37) Red Cell Distribution Width 13.5 % (11.5-14.5) Platelet Count 290 x10^3/uL (140-400) Neutrophils (%) (Auto) 45 % (31-73) Lymphocytes (%) (Auto) 47 % (24-48) Monocytes (%) (Auto) 6 % (0-9) Eosinophils (%) (Auto) 1 % (0-3) Basophils (%) (Auto) 1 % (0-3) Neutrophils # (Auto) 3.1 x10^3/uL (1.8-7.7) Lymphocytes # (Auto) 3.2 x10^3/uL (1.0-4.8) Monocytes # (Auto) 0.4 x10^3/uL (0.0-1.1) Eosinophils # (Auto) 0.1 x10^3/uL (0.0-0.7) Basophils # (Auto) 0.0 x10^3/uL (0.0-0.2) Prothrombin Time 12.5 SEC (11.7-14.0) Prothromb Time International Ratio 1.0 (0.8-1.1) Sodium Level 141 mmol/L (136-145) Potassium Level 5.2 mmol/L (3.5-5.1) Chloride Level 106 mmol/L (98-107) Carbon Dioxide Level 26 mmol/L (21-32) Anion Gap 9 (6-14) Blood Urea Nitrogen 12 mg/dL (7-20) Creatinine 0.9 mg/dL (0.6-1.0) Estimated GFR (Cockcroft-Gault) 76.5 BUN/Creatinine Ratio 13 (6-20) Glucose Level 135 mg/dL (70-99) Calcium Level 9.9 mg/dL (8.5-10.1) Total Bilirubin 0.4 mg/dL (0.2-1.0) Aspartate Amino Transf (AST/SGOT) 23 U/L (15-37) Alanine Aminotransferase (ALT/SGPT) 16 U/L (14-59) Alkaline Phosphatase 79 U/L (46-116) Troponin I Quantitative < 0.017 ng/mL (0.000-0.055) FH-Lsb-K-Type Natriuretic Peptide 46 pg/mL (0-124) Total Protein 7.5 g/dL (6.4-8.2) Albumin 3.7 g/dL (3.4-5.0) Albumin/Globulin Ratio 1.0 (1.0-1.7) Lipase 1420 U/L (73-393) Glucose (Fingerstick) 175 mg/dL (70-99) 181 mg/dL (70-99) Test 03/29/19 01:20 03/29/19 06:30 03/29/19 07:36 Urine Collection Type Unknown Urine Color Yellow Urine Clarity Clear Urine pH 6.5 Urine Specific Foley 1.020 Urine Protein Negative mg/dL (NEG-TRACE) Urine Glucose (UA) 100 mg/dL (NEG) Urine Ketones (Stick) Negative mg/dL (NEG) Urine Blood Negative (NEG) Urine Nitrite Negative (NEG) Urine Bilirubin Negative (NEG) Urine Urobilinogen Dipstick 0.2 mg/dL (0.2 mg/dL) Urine Leukocyte Esterase Trace (NEG) Urine RBC 0 /HPF (0-2) Urine WBC 1-4 /HPF (0-4) Urine Squamous Epithelial Cells Many /LPF Urine Calcium Phosphate Crystals /HPF Urine Amorphous Sediment Present /HPF Urine Bacteria Few /HPF (0-FEW) Urine Mucus Mod /LPF White Blood Count 6.4 x10^3/uL (4.0-11.0) Red Blood Count 4.14 x10^6/uL (3.50-5.40) Hemoglobin 13.7 g/dL (12.0-15.5) Hematocrit 40.6 % (36.0-47.0) Mean Corpuscular Volume 98 fL (79-100) Mean Corpuscular Hemoglobin 33 pg (25-35) Mean Corpuscular Hemoglobin Concent 34 g/dL (31-37) Red Cell Distribution Width 13.5 % (11.5-14.5) Platelet Count 263 x10^3/uL (140-400) Neutrophils (%) (Auto) 35 % (31-73) Lymphocytes (%) (Auto) 57 % (24-48) Monocytes (%) (Auto) 6 % (0-9) Eosinophils (%) (Auto) 1 % (0-3) Basophils (%) (Auto) 1 % (0-3) Neutrophils # (Auto) 2.3 x10^3/uL (1.8-7.7) Lymphocytes # (Auto) 3.6 x10^3/uL (1.0-4.8) Monocytes # (Auto) 0.4 x10^3/uL (0.0-1.1) Eosinophils # (Auto) 0.1 x10^3/uL (0.0-0.7) Basophils # (Auto) 0.1 x10^3/uL (0.0-0.2) Sodium Level 145 mmol/L (136-145) Potassium Level 4.2 mmol/L (3.5-5.1) Chloride Level 109 mmol/L (98-107) Carbon Dioxide Level 27 mmol/L (21-32) Anion Gap 9 (6-14) Blood Urea Nitrogen 14 mg/dL (7-20) Creatinine 0.9 mg/dL (0.6-1.0) Estimated GFR (Cockcroft-Gault) 76.5 BUN/Creatinine Ratio 16 (6-20) Glucose Level 121 mg/dL (70-99) Calcium Level 8.9 mg/dL (8.5-10.1) Total Bilirubin 0.3 mg/dL (0.2-1.0) Aspartate Amino Transf (AST/SGOT) 16 U/L (15-37) Alanine Aminotransferase (ALT/SGPT) 17 U/L (14-59) Alkaline Phosphatase 68 U/L (46-116) Total Protein 6.8 g/dL (6.4-8.2) Albumin 3.4 g/dL (3.4-5.0) Albumin/Globulin Ratio 1.0 (1.0-1.7) Lipase 336 U/L (73-393) Glucose (Fingerstick) 142 mg/dL (70-99) Allergies Allergies Coded Allergies Type Severity Reaction Last Updated Verified No Known Drug Allergies 03/27/16 No Disposition/Orders: D/C to Home Patient Instructions d/c planning 33 min REBEL BHATT MD Mar 29, 2019 10:20
--- NOTE | 2019-03-29 10:33 | RAD ---
PQRS Compliance statement: One or more of the following individualized dose reduction techniques were utilized for this examination: 1. Automated exposure control. 2. Adjustment of the mA and/or kV according to patient size. 3. Use of iterative reconstruction technique. Indication:Abdominal pain. Pancreatitis. TECHNIQUE: CT abdomen and pelvis without IV contrast with multiplanar reformats. COMPARISON: 05/24/2018. FINDINGS: Limited evaluation of solid abdominal and pelvic organs due to lack of IV contrast. Heart is normal in size. No pericardial or pleural effusion. Clear lung bases. Noncontrast appearance of the liver, spleen, gallbladder, pancreas, adrenals within normal limits. Evaluation of pelvis limited due to streak artifact from total right hip arthroplasty. No free pelvic fluid or ascites. No nephrolithiasis or hydronephrosis. Anteriorly malrotated left kidney noted. No enlarged retroperitoneal or pelvic adenopathy. Mild diffuse atherosclerotic plaque in the abdominal aorta and bilateral iliac arteries. No peripancreatic inflammatory changes. No bowel obstruction. Normal appendix. Uterus is present. No pneumoperitoneum. No suspicious bony lesion. IMPRESSION: Limited evaluation of solid abdominal and pelvic organs due to lack of IV contrast. No acute findings. Electronically signed by: Farzad Burton DO (03/29/2019 10:30 AM) [id number]
--- NOTE | 2019-03-29 10:57 | NUR ---
Discharge Note: [facility] Patient signed to go home against medical advice at 0839. Consequences of decision explained and understood. Attending physician notified. Discontinued lines and drains: peripheral IV intact, patient tolerated removal, no complications noted. She left the unit at 0840 accompanied by security personnel.
== END 2019-03-29 09:37 | disposition left against medical advice (07) | DRG 313 ==
LOC: ER 10:46 → ED HOLD 12:30 → 6 SOUTH 16:19
PROVIDERS: ADMIT Family Medicine; ATTEND Family Medicine
DX: R07.89 Other chest pain (principal); K85.90 Acute pancreatitis without necrosis or infection, unspecified; K21.9 Gastro-esophageal reflux disease without esophagitis; E11.9 Type 2 diabetes mellitus without complications; E78.00 Pure hypercholesterolemia, unspecified; F17.210 Nicotine dependence, cigarettes, uncomplicated; H40.9 Unspecified glaucoma; I10 Essential (primary) hypertension; Z53.21 Procedure and treatment not carried out due to patient leaving prior to being seen by health care provider; J45.909 Unspecified asthma, uncomplicated; Z59.7 Insufficient social insurance and welfare support; Z82.49 Family history of ischemic heart disease and other diseases of the circulatory system; Z86.73 Personal history of transient ischemic attack (TIA), and cerebral infarction without residual deficits
CPT/HCPCS: 36415; 71045; 74176; 80053; 81001; 82274; 82962; 83690; 83880; 84484; 85025; 85610; 87086; 93005; J7030; G0378

== ENCOUNTER → 2019-04-11 | Outpatient (CLI) | payer MEDICAID ==
[2019-03-29 07:15] VITALS: BP 132/56
[~2019-04-11] MED LIST changes: +ATOR20TA58 PO; +BACL10TA PO; +LATA2.5D3 EACHEYE; +SITA1TAB11 PO
--- NOTE | 2019-04-11 11:02 | KCIC ---
Bilateral breast ultrasound: Reason for examination: Nodular densities on screening mammogram. Comparison is made to mammographic exam dated 03/06/2019. Ultrasound examination of the breast was performed bilaterally in the areas of mammographic concern and at the axilla. In the retroareolar 10:00 position of the right breast, there is some mildly cystic ductal ectasia which probably corresponds to the area of mammographic concern. No other cystic or solid lesions are seen in the right breast. No abnormal appearing lymph nodes are seen in the right axilla. In the left breast at the retroareolar 3:00 position, there is a 1.2 cm hypoechoic somewhat heterogeneous nodular lesion and a small papilloma cannot be excluded. Further evaluation with ultrasound-guided biopsy is recommended. There appears to be some ductal ectasia in the retroareolar 6:00 position. No other cystic or solid lesions are seen. No abnormal appearing lymph nodes are seen in the left axilla. IMPRESSION: Ductal ectasia in the 10:00 retroareolar position of the right breast. No other right breast lesion was seen. 1.2 cm nodule in the retroareolar position of the left breast which may represent a papilloma. Recommend ultrasound-guided biopsy. BI-RADS Category 4: Suspicious. The patient was notified about these findings and the patient's physician, Dr. Bey was called with this report on 04/11/2019 at 10:55 AM. "Our facility is accredited by the [employer] Mammography Program." This patient's information has been entered into a reminder system for the patient to be notified with the results of her examination and a target date for the next mammogram. Electronically signed by: Paz Carmichael MD (04/11/2019 10:59 AM) [id number]
--- NOTE | 2019-04-11 18:05 | KCIC ---
Examination: ABDOMEN COMPLETE History: Abdominal pain Comparison/Correlation: 03/28/2019 CT abdomen and pelvis without contrast, 05/24/2018 CT Abd and Pelvis with contrast Findings: Complete upper abdominal ultrasound was performed. Liver length is 15.8 cm. Hepatic echotexture is echogenic. Portal venous flow and spectral waveform are unremarkable. Common bile that measures up to 0.4 cm diameter. Gallbladder wall thickness of 0.2 cm noted. No cholelithiasis or evidence of cholecystitis. Right kidney measures 12.4 cm x 4 cm x 5.4 cm. Left kidney measures 10.1 cm x 4 cm a 4.8 cm. Right renal upper pole cyst measures up to 1.3 cm diameter. Left renal lower pole cyst measures up to 2.9 cm diameter by 2.5 cm x 2.4 cm with septated, complex components. No hydronephrosis or evidence of calculus involvement. Renal cortical echotexture is unremarkable. Proximal pancreas is unremarkable. Distal pancreas is obscured by bowel gas. Spleen measures up to 7 cm in longitudinal but is overall not well visualized on this exam. Abdominal aorta and inferior vena cava are obscured by bowel gas. No abdominal ascites. Impression: Complex left renal cyst. This is not seen on 05/24/2018 CT exam of the abdomen and pelvis with contrast. There may be a corresponding lesion on 03/28/2019 CT abdomen and pelvis without contrast although evaluation is limited. Further evaluation with CT of the kidneys with contrast is recommended to further assess. Fatty infiltration of the liver. Electronically signed by: Brooks Porter MD (04/11/2019 6:02 PM) [facility]
== END | disposition home or self-care (01) ==
LOC: KCIC US 08:30
PROVIDERS: ATTEND Family Medicine
DX: N60.41 Mammary duct ectasia of right breast (principal); D24.2 Benign neoplasm of left breast; N28.1 Cyst of kidney, acquired; K76.0 Fatty (change of) liver, not elsewhere classified
CPT/HCPCS: 76641; 76700